=== PATIENT | female | born 1940 | race Caucasian/White ===

== ENCOUNTER 2019-09-11 13:52 | Inpatient (IN) | payer MEDICARE ==
[2019-09-11] MEDS ORDERED: IPRATROPIUM/ALBUTEROL 0.5-2.5 MG/3 ML AMPUL NEB ONE (14:06)
[2019-09-11] MEDS ORDERED: METHYLPREDNISOLONE INJ 125 MG/2 ML SDV IV ONE (14:06)
--- NOTE | 2019-09-11 14:08 | ER Document Report ---
ED Medical Screen (RME) - General Chief Complaint: Breathing Difficulty Stated Complaint: BREATHING PROBLEMS Time Seen by Provider: 09/11/19 14:02 Information source: Patient Notes: Patient presents complaining of cough for the past 5 days. Patient went to an urgent care 2 days ago and was given a shot of steroid medication and an inhaler. Patient reports mild fever at home. No chest discomfort or vomiting. Patient does have a history of COPD. Patient states she quit smoking yesterday and had been smoking less than a pack a day up until that point. I have greeted and performed a rapid initial assessment of this patient. A comprehensive ED assessment and evaluation of the patient, analysis of test results and completion of the medical decision making process will be conducted by additional ED providers. - Related Data Allergies/Adverse Reactions: No Known Allergies Allergy (Verified 09/11/19 13:57) Physical Exam - Vital signs Vitals: Temp Pulse Resp BP Pulse Ox 98.1 F 108 H 28 H 157/88 H 91 L 09/11/19 13:56 09/11/19 13:56 09/11/19 13:56 09/11/19 13:56 09/11/19 13:56 - Respiratory Respiratory status: Labored, Pursed lip breathing, Tachypnea Breath sounds: Productive cough, Rhonchi, Wheezing Course - Vital Signs Vital signs: Temp Pulse Resp BP Pulse Ox 98.1 F 108 H 28 H 157/88 H 91 L 09/11/19 13:56 09/11/19 13:56 09/11/19 13:56 09/11/19 13:56 09/11/19 13:56
[2019-09-11] MEDS: ALBUTEROL SULFATE 0.083% NEB 2.5 MG/3 ML AMPUL NEB SCH ×2 (14:35→14:57)
[2019-09-11 15:12] LABS: HEMATOCRIT 42.3 % (36.0-47.0); HEMOGLOBIN 14.7 g/dL (12.0-15.5); MEAN CORPUSCULAR HEMOGLOBIN 32.1 pg (27.0-33.4); MEAN CORPUSCULAR HGB CONC 34.6 g/dL (32.0-36.0); MEAN CORPUSCULAR VOLUME 93 fl (80-97); PLATELET COUNT 364 10^3/uL (150-450); RED BLOOD COUNT 4.57 10^6/uL (3.72-5.28); RED CELL DISTRIBUTION WIDTH 14.8 % (11.5-14.0); WHITE BLOOD COUNT 18.4 10^3/uL (4.0-10.5)
[2019-09-11] MEDS ORDERED: ALBUTEROL SULFATE 0.083% NEB 2.5 MG/3 ML AMPUL NEB ONE ×2 (15:30→16:35)
[2019-09-11 15:37] LABS: ABSOLUTE LYMPHOCYTES# (MANUAL) 1.7 10^3/uL (0.5-4.7); ABSOLUTE MONOCYTES # (MANUAL) 1.3 10^3/uL (0.1-1.4); BASOPHILS % (MANUAL) 1 % (0-2); EOSINOPHILS % (MANUAL) 0 % (0-6); LYMPHOCYTES % (MANUAL) 9 % (13-45); MONOCYTES % (MANUAL) 7 % (3-13); SEGMENTED NEUTROPHILS % (MAN) 83 % (42-78); TOTAL CELLS COUNTED 100
[2019-09-11 15:39] LABS: ANISOCYTOSIS SLIGHT; PLATELET COMMENT ADEQUATE; TOXIC VACUOLATION PRESENT
--- NOTE | 2019-09-11 15:46 | ER Document Report ---
Entered by DEBORAH BROWNING SCRIBE 09/11/19 1525 Acting as scribe for:DAQUAN POSADA MD ED General - General Chief Complaint: Breathing Difficulty Stated Complaint: BREATHING PROBLEMS Time Seen by Provider: 09/11/19 14:02 Primary Care Provider: USHA SULLIVAN MD [Primary Care Provider] - Follow up as needed Mode of Arrival: Ambulatory Information source: Patient Notes: This 79 year old female patient presents to the ED today with complaints of shortness of breath and an associated productive cough for the past x2 days. Patient states that she brings up green-colored sputum when she coughs. Patient notes that she was seen at an urgent care x2 days ago and was administered a steroid shot and an inhaler. Patient received a DuoNeb treatment prior to exam, but states that it provided no relief. Patient states that she did not receive a flu shot this year. Patient was 91% on room air initially despite her tachypnea. - Related Data Allergies/Adverse Reactions: No Known Allergies Allergy (Verified 09/11/19 13:57) Past Medical History - General Information source: Patient - Social History Smoking Status: Smoker,Current Status Unk Cigarette use (# per day): No Chew tobacco use (# tins/day): No Smoking Education Provided: No Family History: Reviewed & Not Pertinent Patient has suicidal ideation: No Patient has homicidal ideation: No Pulmonary Medical History: Reports: Hx COPD Review of Systems - Review of Systems Constitutional: No symptoms reported EENT: No symptoms reported Cardiovascular: No symptoms reported Respiratory: See HPI, Cough, Short of breath, Sputum Gastrointestinal: No symptoms reported Genitourinary: No symptoms reported Female Genitourinary: No symptoms reported Musculoskeletal: No symptoms reported Skin: No symptoms reported Hematologic/Lymphatic: No symptoms reported Neurological/Psychological: No symptoms reported -: Yes All other systems reviewed and negative Physical Exam - Vital signs Vitals: Temp Pulse Resp BP Pulse Ox 98.1 F 108 H 28 H 157/88 H 91 L 09/11/19 13:56 09/11/19 13:56 09/11/19 13:56 09/11/19 13:56 09/11/19 13:56 Interpretation: Tachycardic, Tachypneic - General General appearance: Alert - HEENT Head: Normocephalic, Atraumatic Eyes: Normal Pupils: PERRL - Respiratory Respiratory status: Pursed lip breathing, Retractions, Tachypnea Chest status: Nontender Breath sounds: Rhonchi - Worse on left side, Wheezing - Worse on left side, Other - Congestion Chest palpation: Normal - Cardiovascular Rhythm: Tachycardia Heart sounds: Normal auscultation Murmur: No - Abdominal Inspection: Normal Distension: No distension Bowel sounds: Normal Tenderness: Nontender Organomegaly: No organomegaly - Back Back: Other - Right side of back bulges compared to left side - Extremities General upper extremity: Normal inspection General lower extremity: Normal inspection - Neurological Neuro grossly intact: Yes - Psychological Associated symptoms: Normal affect, Normal mood - Skin Skin Temperature: Warm Skin Moisture: Dry Skin Color: Normal Course - Re-evaluation Re-evalutation: 09/11/19 17:43 The patient is much less tachypneic now. She states her breathing does feel much better. There is no retractions seen. She still has diffuse wheezes and rhonchi, especially if I have her take a deep breath and cough. Pulse ox is 90% on 2 L nasal cannula. Patient does look fatigued and is sitting on the edge of the bed hunched over. - Vital Signs Vital signs: Temp Pulse Resp BP Pulse Ox 98.1 F 108 H 24 H 124/69 93 09/11/19 13:56 09/11/19 13:56 09/11/19 17:01 09/11/19 17:01 09/11/19 17:01 - Laboratory Result Diagrams: 09/11/19 14:48 09/11/19 15:30 Laboratory results interpreted by me: 09/11/19 09/11/19 14:48 15:30 WBC 18.4 H RDW 14.8 H Seg Neuts % (Manual) 83 H Lymphocytes % (Manual) 9 L Abs Neuts (Manual) 15.3 H Glucose 132 H Alkaline Phosphatase 164 H - Diagnostic Test Radiology reviewed: Image reviewed, Reports reviewed - Chest x-ray shows emphysema with no acute changes. - EKG Interpretation by Me EKG shows normal: Sinus rhythm, Mclean, Intervals, QRS Complexes, ST-T Waves Rate: Normal - 87 Rhythm: NSR, PVC's When compared to previous EKG there are: Previous EKG unavailable - Consults Dr. Chandler Time consulted: 17:45 Consulted provider: will come to ER Critical Care Note - Critical Care Note Total time excluding time spent on procedures (mins): 35 Discharge - Discharge Clinical Impression: Acute exacerbation of chronic obstructive pulmonary disease (COPD), Hypoxemia Leukocytosis Qualifiers: Leukocytosis type: unspecified Qualified Code(s): D72.829 - Elevated white blood cell count, unspecified Condition: Fair Disposition: ADMITTED INPATIENT Admitting Provider: Ramesh (Hospitalist) Unit Admitted: IMCU Referrals: USHA SULLIVAN MD [Primary Care Provider] - Follow up as needed Scribe Attestation: 09/11/19 15:46 I personally performed the services described in the documentation, reviewed and edited the documentation which was dictated to the scribe in my presence, and it accurately records my words and actions. I personally performed the services described in the documentation, reviewed and edited the documentation which was dictated to the scribe in my presence, and it accurately records my words and actions.
[2019-09-11 16:04] LABS: ALKALINE PHOSPHATASE 164 U/L (38-126); ANION GAP 11 (5-19); ASPARTATE AMINO TRANSFERASE 25 U/L (14-36); BILIRUBIN,DIRECT 0.4 mg/dL (0.0-0.4); BILIRUBIN,TOTAL 0.5 mg/dL (0.2-1.3); BLOOD UREA NITROGEN 16 mg/dL (7-20); CALCIUM 9.7 mg/dL (8.4-10.2); CARBON DIOXIDE 27 mmol/L (22-30); CHLORIDE 100 mmol/L (98-107); GLUCOSE 132 mg/dL (75-110); POTASSIUM 3.9 mmol/L (3.6-5.0); TOTAL PROTEIN 7.1 g/dL (6.3-8.2)
--- NOTE | 2019-09-11 16:04 | RADIOLOGY REPORT (SQ) ---
EXAM DESCRIPTION: CHEST SINGLE VIEW COMPLETED DATE/TIME: 09/11/2019 3:44 pm REASON FOR STUDY: COPD exacerbation COMPARISON: None. EXAM PARAMETERS: NUMBER OF VIEWS: One view. TECHNIQUE: Single frontal radiographic view of the chest acquired. RADIATION DOSE: NA LIMITATIONS: None. FINDINGS: LUNGS AND PLEURA: No consolidation, pneumothorax or pleural effusion. Hyperlucent lungs a re suggestive of emphysema. MEDIASTINUM AND HILAR STRUCTURES: No masses. Contour normal. HEART AND VASCULAR STRUCTURES: Heart normal in size. No overt vascular congestion. BONES: No acute findings. HARDWARE: None in the chest. IMPRESSION: Emphysema. Otherwise, no acute radiographic finding in the chest. TECHNICAL DOCUMENTATION: JOB ID: [id number] [employer]- All Rights Reserved Reading location - IP/workstation name: [email or web address]
[2019-09-11 17:16] LABS: A TYPE INFLUENZA AG NEGATIVE (NEGATIVE); B INFLUENZA AG NEGATIVE (NEGATIVE)
[2019-09-11] MEDS ORDERED: ACETAMINOPHEN 325 MG TABLET PO PRN (18:07)
[2019-09-11] MEDS ORDERED: ONDANSETRON HCL INJ/PF 4 MG/2 ML SDV IV PRN (18:07)
[2019-09-11] MEDS ORDERED: NORMAL SALINE 1000 ML 1,000 ML IV PRN (18:07)
--- NOTE | 2019-09-11 18:22 | PDOC H&P ---
History of Present Illness Admission Date/PCP: USHA SULLIVAN MD Patient complains of: Shortness of breath for the last 5 to 6 days. History of Present Illness: MORGAN HINKLE is a 79 year old female history of COPD, chronic smoker smokes half pack per day, hypertension came to the emergency room with complaints of shortness of breath for the last 5 to 6 days associated with wheezing and coughing yellowish-green sputum. She went to urgent care center on Thursday she was given Mucinex, steroids and albuterol inhaler. Symptoms are not improving she decided to come to the ER for further evaluation. At the time of presentation in the ER patient is tachycardic tachypneic and pulse ox is around 88 to 90%. Patient received nebulizer treatments and IV Solu-Medrol pulse oxes are improved tachycardia tachypnea improving. Medical consult was called for admission. Patient wants to be a full code. Past Medical History Cardiac Medical History: Reports: Hypertension Pulmonary Medical History: Reports: Chronic Obstructive Pulmonary Disease (COPD) Malignancy Medical History: Reports: None GI Medical History: Reports: None Musculoskeltal Medical History: Reports: None Skin Medical History: Reports: None Psychiatric Medical History: Reports: None Traumatic Medical History: Reports: None Hematology: Reports: None Past Surgical History Past Surgical History: Reports: Adenoidectomy, Tonsillectomy, Tubal Ligation, Other - Partial hysterectomy Social History Information Source: Patient Lives with: Alone Smoking Status: Current Every Day Smoker Electronic Cigarette use?: No Frequency of Alcohol Use: Social Hx Recreational Drug Use: No Drugs: None - Advance Directive Resuscitation Status: Full Code Family History Family History: Reviewed & Not Pertinent Parental Family History Reviewed: No - Family history of hypertension Children Family History Reviewed: No Sibling(s) Family History Reviewed.: No Medication/Allergy Allergies/Adverse Reactions: No Known Allergies Allergy (Verified 09/11/19 13:57) Review of Systems Constitutional: ABSENT: chills, fatigue, fever(s), headache(s), night sweats, weakness Eyes: ABSENT: visual disturbances Ears: ABSENT: hearing changes Nose, Mouth, and Throat: ABSENT: mouth pain, sore throat Cardiovascular: ABSENT: dyspnea on exertion, orthropnea, palpitations Respiratory: PRESENT: cough, dyspnea, sputum Gastrointestinal: ABSENT: diarrhea, dysphagia, heartburn, hematemesis, melena, nausea, vomiting Genitourinary: ABSENT: difficulty urinating, dysuria, hematuria Musculoskeletal: ABSENT: back pain, joint swelling Integumentary: ABSENT: lesions, pruritus Neurological: ABSENT: confusion, dizziness, focal weakness, syncope Psychiatric: ABSENT: anxiety, depression Endocrine: ABSENT: cold intolerance Hematologic/Lymphatic: ABSENT: easy bleeding, easy bruising Physical Exam Vital Signs: Temp Pulse Resp BP Pulse Ox 98.1 F 108 H 24 H 124/69 93 09/11/19 13:56 09/11/19 13:56 09/11/19 17:01 09/11/19 17:01 09/11/19 17:01 Intake & Output 09/10/19 09/11/19 09/12/19 06:59 06:59 06:59 Weight 58.4 kg General appearance: PRESENT: no acute distress, thin Head exam: PRESENT: atraumatic Eye exam: PRESENT: PERRLA Mouth exam: PRESENT: dry mucosa, neck supple Teeth exam: PRESENT: poor dentation Neck exam: ABSENT: carotid bruit, JVD, lymphadenopathy, thyromegaly Respiratory exam: PRESENT: decreased breath sounds, wheezes Cardiovascular exam: PRESENT: tachycardia GI/Abdominal exam: PRESENT: normal bowel sounds, soft. ABSENT: distended, guarding, mass, organolmegaly, rebound, tenderness Rectal exam: PRESENT: deferred Extremities exam: PRESENT: full ROM. ABSENT: calf tenderness, clubbing, pedal e noé Neurological exam: PRESENT: alert, awake, oriented to person, oriented to place, oriented to time, oriented to situation, CN II-XII grossly intact. ABSENT: motor sensory deficit Psychiatric exam: PRESENT: appropriate affect, normal mood. ABSENT: homicidal ideation, suicidal ideation Results Laboratory Results: 09/11/19 14:48 09/11/19 15:30 09/11/19 09/11/19 09/11/19 14:48 14:48 15:30 WBC 18.4 H RBC 4.57 Hgb 14.7 Hct 42.3 MCV 93 MCH 32.1 MCHC 34.6 RDW 14.8 H Plt Count 364 Seg Neutrophils % Not Reportable Sodium Cancelled 138.3 Potassium Cancelled 3.9 Chloride Cancelled 100 Carbon Dioxide Cancelled 27 Anion Gap Cancelled 11 BUN Cancelled 16 Creatinine Cancelled 0.68 Est GFR ( Amer) Cancelled > 60 Est GFR (Non-Af Amer) Cancelled Glucose Cancelled 132 H Calcium Cancelled 9.7 Total Bilirubin Cancelled 0.5 AST Cancelled 25 Alkaline Phosphatase Cancelled 164 H Total Protein Cancelled 7.1 Albumin Cancelled 4.0 09/11/19 09/11/19 14:48 15:30 Troponin I Cancelled < 0.012 Impressions: Chest X-Ray 09/11/19 15:30 IMPRESSION: Emphysema. Otherwise, no acute radiographic finding in the chest. Assessment and Plan - Diagnosis (1) Acute exacerbation of chronic obstructive pulmonary disease (COPD) Is this a current diagnosis for this admission?: Yes Plan: 09/11/2019 patient is going to be admitted to [facility] patient is a full code. Admitting diagnosis acute on chronic exacerbation of COPD. Plan to start her on IV Solu-Medrol 40 mg every 12 hours, Xopenex nebulizations every 6 hours as needed, flutter valve therapy, oxygen 2 L via nasal cannula, IV Rocephin 2 g daily. sputum cultures blood cultures are pending. We are going to check for home oxygen requirements at the time of discharge. Chest x-ray suggestive of emphysema. dVT prophylaxis GI prophylaxis initiated. (2) Hypoxemia Is this a current diagnosis for this admission?: Yes Plan: 09/11/2019-patient came in with acute on chronic respiratory failure with hypoxia pulse ox in the 80s on initial presentation with nebulizer treatments and IV S cathy-Medrol pulse ox improved to 93% on 2 L at the time of my examination. Acute on chronic respiratory failure with hypoxia most likely secondary to COPD exacerbation. (3) Leukocytosis Qualifiers: Leukocytosis type: unspecified Qualified Code(s): D72.829 - Elevated white blood cell count, unspecified Is this a current diagnosis for this admission?: Yes Plan: 09/11/2019 admission WBC count is 18,600 patient was started on steroids at the urgent care 2 days ago. Elevated WBC can be reactive leukocytosis. (4) HTN (hypertension) Is this a current diagnosis for this admission?: No Plan: 09/11/2019 patient is given the history of hypertension associated with lower leg swelling she is taking furosemide at home. Plan is to resume furosemide during this hospital stay. (5) Tachycardia Is this a current diagnosis for this admission?: Yes Plan: 09/11/2019 at the time of examination patient in a sinus tachycardia with heart rate around 120. Sinus tachycardia most likely secondary to COPD exacerbation.
--- NOTE | 2019-09-11 18:30 | EKG REPORT ---
SEVERITY:- OTHERWISE NORMAL ECG - SINUS RHYTHM VENTRICULAR PREMATURE COMPLEX : Confirmed by: Princess Edwards MD 11-Sep-2019 18:29:40
[2019-09-11] MEDS ORDERED: CEFTRIAXONE 2 GM/D5W RTU 2 GM/50 ML RTUPB IV ONE (20:00)
[2019-09-11] MEDS: FAMOTIDINE 20 MG TABLET PO SCH (22:12)
[2019-09-11] MEDS: TEMAZEPAM 15 MG CAPSULE PO SCH (22:12)
[2019-09-11] MEDS: METHYLPREDNISOLONE INJ 40 MG/1 ML SDV IV SCH (22:13)
[2019-09-11] MEDS: HEPARIN SOD (PORCINE) 5,000 UNIT/ML 1 ML VIAL SUBCUT SCH (22:13)
[2019-09-12] MEDS ORDERED: INFLUENZA QUAD (6MOS+) 2019-20 VAC 0.5 ML SYR IM ONE (00:52)
[2019-09-12] MEDS: HEPARIN SOD (PORCINE) 5,000 UNIT/ML 1 ML VIAL SUBCUT SCH ×3 (05:30→21:35)
[2019-09-12 05:43] LABS: HEMATOCRIT 40.3 % (36.0-47.0); HEMOGLOBIN 13.5 g/dL (12.0-15.5); MEAN CORPUSCULAR HEMOGLOBIN 31.2 pg (27.0-33.4); MEAN CORPUSCULAR HGB CONC 33.5 g/dL (32.0-36.0); MEAN CORPUSCULAR VOLUME 93 fl (80-97); PLATELET COUNT 350 10^3/uL (150-450); RED BLOOD COUNT 4.33 10^6/uL (3.72-5.28); RED CELL DISTRIBUTION WIDTH 13.8 % (11.5-14.0); WHITE BLOOD COUNT 11.1 10^3/uL (4.0-10.5)
[2019-09-12 06:08] LABS: BLOOD UREA NITROGEN 16 mg/dL (7-20); CALCIUM 9.6 mg/dL (8.4-10.2); CARBON DIOXIDE 31 mmol/L (22-30); CHLORIDE 101 mmol/L (98-107); GLUCOSE 139 mg/dL (75-110); POTASSIUM 4.8 mmol/L (3.6-5.0)
[2019-09-12 06:09] LABS: ALBUMIN 3.6 g/dL (3.5-5.0); ALKALINE PHOSPHATASE 132 U/L (38-126); ANION GAP 8 (5-19); ASPARTATE AMINO TRANSFERASE 19 U/L (14-36); BILIRUBIN,DIRECT 0.3 mg/dL (0.0-0.4); BILIRUBIN,TOTAL 0.3 mg/dL (0.2-1.3); CHOLESTEROL 161.39 mg/dL (0-200); TOTAL PROTEIN 6.5 g/dL (6.3-8.2); TRIGLYCERIDES 84 mg/dL (<150)
[2019-09-12 06:19] LABS: DIRECT LDL 87 mg/dL (<100)
[2019-09-12] MEDS ORDERED: GUAIFENESIN/D-METHORPHAN (200-20 MG) SYRUP 10 ML PO PRN (09:25)
--- NOTE | 2019-09-12 09:25 | PDOC PROGRESS REPORT ---
Subjective Progress Note for:: 09/12/19 Subjective:: 79 year old female history of COPD, chronic smoker smokes half pack per day, hypertension came to the emergency room with complaints of shortness of breath for the last 5 to 6 days associated with wheezing and coughing yellowish-green sputum. She went to urgent care center on Thursday she was given Mucinex, steroids and albuterol inhaler. Symptoms are not improving she decided to come to the ER for further evaluation. At the time of presentation in the ER patient is tachycardic tachypneic and pulse ox is around 88 to 90%. Patient received nebulizer treatments and IV Solu-Medrol pulse oxes are improved tachycardia tachypnea improving. Medical consult was called for admission. Patient wants to be a full code. [id number]-old female with history of COPD admitted with COPD exacerbation. No acute events in the last 24 hours. Afebrile. Pulse ox is 96% on 2 L. Reason For Visit: COPD EXACERBATION Physical Exam Vital Signs: Temp Pulse Resp BP Pulse Ox 97.6 F 85 16 176/77 H 96 09/12/19 07:52 09/12/19 07:52 09/12/19 07:52 09/12/19 07:52 09/12/19 07:52 Intake & Output 09/11/19 09/12/19 09/13/19 06:59 06:59 06:59 Intake Total 310 Balance 310 Weight 58.8 kg General appearance: PRESENT: no acute distress, thin Head exam: PRESENT: atraumatic Eye exam: PRESENT: PERRLA Mouth exam: PRESENT: moist, tongue midline Teeth exam: PRESENT: poor dentation Neck exam: ABSENT: carotid bruit, JVD, lymphadenopathy, thyromegaly Respiratory exam: PRESENT: decreased breath sounds Cardiovascular exam: PRESENT: RRR, tachycardia. ABSENT: diastolic murmur, rubs, systolic murmur GI/Abdominal exam: PRESENT: normal bowel sounds, soft. ABSENT: distended, guarding, mass, organolmegaly, rebound, tenderness Rectal exam: PRESENT: deferred Extremities exam: PRESENT: full ROM. ABSENT: calf tenderness, clubbing, pedal edema Neurological exam: PRESENT: alert, awake, oriented to person, oriented to place, oriented to time, oriented to situation, CN II-XII grossly intact. ABSENT: motor sensory deficit Psychiatric exam: PRESENT: appropriate affect, normal mood. ABSENT: homicidal ideation, suicidal ideation Results Laboratory Results: 09/12/19 04:47 09/12/19 04:47 09/11/19 09/11/19 09/11/19 14:48 14:48 15:30 WBC 18.4 H RBC 4.57 Hgb 14.7 Hct 42.3 MCV 93 MCH 32.1 MCHC 34.6 RDW 14.8 H Plt Count 364 Seg Neutrophils % Not Reportable Sodium Cancelled 138.3 Potassium Cancelled 3.9 Chloride Cancelled 100 Carbon Dioxide Cancelled 27 Anion Gap Cancelled 11 BUN Cancelled 16 Creatinine Cancelled 0.68 Est GFR ( Amer) Cancelled > 60 Est GFR (Non-Af Amer) Cancelled Glucose Cancelled 132 H Calcium Cancelled 9.7 Magnesium Total Bilirubin Cancelled 0.5 AST Cancelled 25 Alkaline Phosphatase Cancelled 164 H Total Protein Cancelled 7.1 Albumin Cancelled 4.0 Triglycerides Cholesterol LDL Cholesterol Direct VLDL Cholesterol HDL Cholesterol TSH 09/12/19 09/12/19 09/12/19 04:47 04:47 04:47 WBC 11.1 H RBC 4.33 Hgb 13.5 Hct 40.3 MCV 93 MCH 31.2 MCHC 33.5 RDW 13.8 Plt Count 350 Seg Neutrophils % Sodium 140.3 Potassium 4.8 Chloride 101 Carbon Dioxide 31 H Anion Gap 8 BUN 16 Creatinine 0.60 Est GFR ( Amer) > 60 Est GFR (Non-Af Amer) Glucose 139 H Calcium 9.6 Magnesium 2.5 H Total Bilirubin 0.3 AST 19 Alkaline Phosphatase 132 H Total Protein 6.5 Albumin 3.6 Triglycerides 84 Cholesterol 161.39 LDL Cholesterol Direct 87 VLDL Cholesterol 17.0 HDL Cholesterol 59 TSH 0.32 L 09/11/19 09/11/19 14:48 15:30 Troponin I Cancelled < 0.012 Impressions: Chest X-Ray 09/11/19 15:30 IMPRESSION: Emphysema. Otherwise, no acute radiographic finding in the chest. Assessment and Plan - Diagnosis (1) Acute exacerbation of chronic obstructive pulmonary disease (COPD) Is this a current diagnosis for this admission?: Yes Plan: 09/11/2019 patient is going to be admitted to [facility] patient is a full code. Admitting diagnosis acute on chronic exacerbation of COPD. Plan to start her on IV Solu-Medrol 40 mg every 12 hours, Xopenex nebulizations every 6 hours as needed, flutter valve therapy, oxygen 2 L via nasal cannula, IV Rocephin 2 g daily. sputum cultures blood cultures are pending. We are going to check for home oxygen requirements at the time of discharge. Chest x-ray suggestive of emphysema. dVT prophylaxis GI prophylaxis initiated. 09/[id number]-[id number]-old female with history of COPD, chronic smoker admitted with a COPD exacerbation. Patient is receiving Xopenex nebulizations, flutter valve therapy, IV Solu-Medrol 40 mg every 12 hours. Pulse ox is 96% on 2 L today on examination wheezing is much improved. Plan is to continue the present management at this time and she is receiving Rocephin 2 g IV daily. (2) Hypoxemia Is this a current diagnosis for this admission?: Yes Plan: 09/11/2019-patient came in with acute on chronic respiratory failure with hypoxia pulse ox in the 80s on initial presentation with nebulizer treatments and IV Solu-Medrol pulse ox improved to 93% on 2 L at the time of my examination. Acute on chronic respiratory failure with hypoxia most likely secondary to COPD exacerbation. 09/12/2019-patient admitted with hypoxia with a pulse ox of around 88% in the emergency room she was given nebulizer treatments and IV Solu-Medrol in the ER pulse oxes are improved. Hypoxia secondary to acute exacerbation of COPD resolving. (3) Leukocytosis Qualifiers: Leukocytosis type: unspecified Qualified Code(s): D72.829 - Elevated white blood cell count, unspecified Is this a current diagnosis for this admission?: Yes Plan: 09/11/2019 admission WBC count is 18,600 patient was started on steroids at the [facility] 2 days ago. Elevated WBC can be reactive leukocytosis. 09/12/2019 admission WBC count is 18,600 improved to 11,100 today. Leukocytosis may be secondary to COPD exacerbation. May be due to reactive leukocytosis. (4) HTN (hypertension) Is this a current diagnosis for this admission?: No Plan: 09/11/2019 patient is given the history of hypertension associated with lower leg swelling she is taking furosemide at home. Plan is to resume furosemide during this hospital stay. 09/12/2019-patient blood pressure today is 176/77. Presently on Lasix 20 mg daily. Plan is to discontinue IV fluids from today. (5) Tachycardia Is this a current diagnosis for this admission?: Yes Plan: 09/11/2019 at the time of examination patient in a sinus tachycardia with heart rate around 120. Sinus tachycardia most likely secondary to COPD exacerbation. 09/12/2019-patient came in with tachycardia heart rate between 120-to 130 today's heart rate is in the 80s. Tachycardia most likely secondary to COPD exacerbation resolving.
[2019-09-12] MEDS: LEVALBUTEROL HCL NEB 1.25 MG/3 ML AMPUL NEB PRN ×2 (09:56→14:00)
[2019-09-12] MEDS: FUROSEMIDE 20 MG TABLET PO SCH (10:01)
[2019-09-12] MEDS: DOCUSATE SODIUM 100 MG/10 ML UDC PO SCH ×2 (10:01→17:01)
[2019-09-12] MEDS: METHYLPREDNISOLONE INJ 40 MG/1 ML SDV IV SCH ×2 (10:02→21:35)
[2019-09-12] MEDS: FAMOTIDINE 20 MG TABLET PO SCH ×2 (10:02→21:35)
[2019-09-12] MEDS: TEMAZEPAM 15 MG CAPSULE PO SCH (21:35)
[2019-09-13] MEDS: HEPARIN SOD (PORCINE) 5,000 UNIT/ML 1 ML VIAL SUBCUT SCH ×3 (05:05→21:26)
[2019-09-13 05:17] LABS: HEMATOCRIT 43.2 % (36.0-47.0); HEMOGLOBIN 14.7 g/dL (12.0-15.5); MEAN CORPUSCULAR HEMOGLOBIN 31.3 pg (27.0-33.4); MEAN CORPUSCULAR VOLUME 92 fl (80-97); PLATELET COUNT 359 10^3/uL (150-450); RED BLOOD COUNT 4.69 10^6/uL (3.72-5.28); RED CELL DISTRIBUTION WIDTH 14.1 % (11.5-14.0); WHITE BLOOD COUNT 14.1 10^3/uL (4.0-10.5)
[2019-09-13 05:28] LABS: ALKALINE PHOSPHATASE 131 U/L (38-126); ANION GAP 6 (5-19); ASPARTATE AMINO TRANSFERASE 24 U/L (14-36); BILIRUBIN,DIRECT 0.4 mg/dL (0.0-0.4); BILIRUBIN,TOTAL 0.4 mg/dL (0.2-1.3); BLOOD UREA NITROGEN 23 mg/dL (7-20); CALCIUM 9.6 mg/dL (8.4-10.2); CARBON DIOXIDE 34 mmol/L (22-30); CHLORIDE 100 mmol/L (98-107); GLUCOSE 122 mg/dL (75-110); POTASSIUM 4.7 mmol/L (3.6-5.0); TOTAL PROTEIN 7.3 g/dL (6.3-8.2)
[2019-09-13 05:37] LABS: ABSOLUTE LYMPHOCYTES# (MANUAL) 1.4 10^3/uL (0.5-4.7); ABSOLUTE MONOCYTES # (MANUAL) 0.1 10^3/uL (0.1-1.4); BASOPHILS % (MANUAL) 0 % (0-2); EOSINOPHILS % (MANUAL) 0 % (0-6); LYMPHOCYTES % (MANUAL) 8 % (13-45); MONOCYTES % (MANUAL) 1 % (3-13); SEGMENTED NEUTROPHILS % (MAN) 89 % (42-78); TOTAL CELLS COUNTED 100
[2019-09-13 05:40] LABS: ANISOCYTOSIS SLIGHT; OVALOCYTES SLIGHT; PLATELET COMMENT ADEQUATE; POIKILOCYTOSIS SLIGHT; TOXIC GRANULATION 1+; TOXIC VACUOLATION PRESENT
[2019-09-13] MEDS ORDERED: HYDRALAZINE HCL INJ/PF 20 MG/1 ML SDV IV PRN (07:48)
[2019-09-13] MEDS ORDERED: HYDRALAZINE HCL INJ/PF 20 MG/1 ML SDV IV ONE (09:00)
[2019-09-13] MEDS: FUROSEMIDE 20 MG TABLET PO SCH (09:04)
[2019-09-13] MEDS: DOCUSATE SODIUM 100 MG/10 ML UDC PO SCH ×2 (09:04→17:01)
[2019-09-13] MEDS: FAMOTIDINE 20 MG TABLET PO SCH ×2 (09:04→21:26)
[2019-09-13] MEDS: METHYLPREDNISOLONE INJ 40 MG/1 ML SDV IV SCH ×2 (09:04→21:26)
[2019-09-13] MEDS: LEVALBUTEROL HCL NEB 1.25 MG/3 ML AMPUL NEB PRN (09:57)
[2019-09-13] MEDS: AZITHROMYCIN 250 MG TABLET PO SCH (13:07)
--- NOTE | 2019-09-13 14:38 | PDOC PROGRESS REPORT ---
Subjective Progress Note for:: 09/13/19 Reason For Visit: COPD EXACERBATION 09/13/2019 Patient was admitted for 5-day history of cough, increased shortness of breath, COPD exacerbation. patient denies using oxygen at home Physical Exam Vital Signs: Temp Pulse Resp BP Pulse Ox 97.6 F 105 H 17 131/67 H 93 09/13/19 11:43 09/13/19 14:00 09/13/19 11:43 09/13/19 11:43 09/13/19 11:43 Intake & Output 09/12/19 09/13/19 09/14/19 06:59 06:59 06:59 Intake Total 310 1355 640 Output Total 200 Balance 310 1155 640 Weight 58.8 kg 60.2 kg General appearance: PRESENT: mild distress Respiratory exam: PRESENT: tachypnea, wheezes, other - Patient is speaking in short sentences with pursed lips Cardiovascular exam: PRESENT: RRR. ABSENT: diastolic murmur, rubs, systolic murmur Neurological exam: PRESENT: alert, awake, oriented to person, oriented to place, oriented to time, oriented to situation, CN II-XII grossly intact. ABSENT: motor sensory deficit Psychiatric exam: PRESENT: appropriate affect, normal mood, other - Patient denies being anxious. ABSENT: homicidal ideation, suicidal ideation Results Laboratory Results: 09/13/19 04:41 09/13/19 04:41 09/13/19 09/13/19 04:41 04:41 WBC 14.1 H RBC 4.69 Hgb 14.7 Hct 43.2 MCV 92 MCH 31.3 MCHC 34.0 RDW 14.1 H Plt Count 359 Seg Neutrophils % Not Reportable Sodium 139.9 Potassium 4.7 Chloride 100 Carbon Dioxide 34 H Anion Gap 6 BUN 23 H Creatinine 0.83 Est GFR ( Amer) > 60 Glucose 122 H Calcium 9.6 Magnesium 2.7 H Total Bilirubin 0.4 AST 24 Alkaline Phosphatase 131 H Total Protein 7.3 Albumin 4.0 09/11/19 16:11 Sputum Gram Stain - Final 09/11/19 16:11 Sputum Sputum Culture - Final Haemophilus Influenzae Reduced Normal Rae 09/11/19 09/11/19 14:48 15:30 Troponin I Cancelled < 0.012 Impressions: Chest X-Ray 09/11/19 15:30 IMPRESSION: Emphysema. Otherwise, no acute radiographic finding in the chest. Assessment and Plan - Diagnosis (1) Emphysema of lung Is this a current diagnosis for this admission?: Yes (2) End stage COPD Is this a current diagnosis for this admission?: Yes (3) Acute exacerbation of chronic obstructive pulmonary disease (COPD) Is this a current diagnosis for this admission?: Yes (4) HTN (hypertension) Is this a current diagnosis for this admission?: Yes (5) Hypoxemia Is this a current diagnosis for this admission?: Yes (6) Leukocytosis Qualifiers: Leukocytosis type: unspecified Qualified Code(s): D72.829 - Elevated white blood cell count, unspecified Is this a current diagnosis for this admission?: Yes (7) Tachycardia Is this a current diagnosis for this admission?: Yes - Plan Summary Summary: 09/13/2019 Patient denies using oxygen at home. Does not have a nebulizer machine at home although she will need one at the time of discharge Patient states she was living independently but is going to live with her son at the time of discharge. Patient states that prior to being admitted she had 5 days of worsening shortness of breath Temperature 97.6 pulse 66 blood pressure was elevated at 182/91 O2 sat was between 92 and 98% on 1 to 3 L of nasal cannula Blood pressures come down to 131/67 with 20 of Apresoline IV. Patient was on no antihypertensive other than Lasix prior to admission. States she was put on this medicine many years ago for peripheral edema. Patient denies ever being told she was hypertensive Admission white count was 18,400 today it is 14.1 Chemistry panel is grossly normal A1c is 5.7. TSH was low at 0.32 Feed him is growing out H. influenzae. Swab in the emergency room was negative for flu a or flu B Patient currently using Solu-Medrol 40 mg IV every 12 hours. Lasix 20 mg p.o. daily Zithromax 500 mg po daily was added today Patient will probably need home oxygen and also a nebulizer machine at the time of discharge repeat chest x-ray 2 views in the morning - Time Time Spent with patient: 25-34 minutes
[2019-09-13] MEDS: TEMAZEPAM 15 MG CAPSULE PO SCH (21:26)
[2019-09-14] MEDS: HEPARIN SOD (PORCINE) 5,000 UNIT/ML 1 ML VIAL SUBCUT SCH ×3 (05:20→21:22)
[2019-09-14] MEDS: AZITHROMYCIN 250 MG TABLET PO SCH (09:05)
[2019-09-14] MEDS: FUROSEMIDE 20 MG TABLET PO SCH (09:05)
[2019-09-14] MEDS: FAMOTIDINE 20 MG TABLET PO SCH ×2 (09:05→21:22)
[2019-09-14] MEDS: DOCUSATE SODIUM 100 MG/10 ML UDC PO SCH ×2 (09:05→17:11)
[2019-09-14] MEDS: METHYLPREDNISOLONE INJ 40 MG/1 ML SDV IV SCH (09:05)
--- NOTE | 2019-09-14 10:07 | RADIOLOGY REPORT (SQ) ---
EXAM DESCRIPTION: CHEST 2 VIEWS COMPLETED DATE/TIME: 09/14/2019 9:43 am REASON FOR STUDY: copd vs pneumonia COMPARISON: 09/11/2019 EXAM PARAMETERS: NUMBER OF VIEWS: two views TECHNIQUE: Digital Frontal and Lateral radiographic views of the chest acquired. RADIATION DOSE: NA LIMITATIONS: none FINDINGS: LUNGS AND PLEURA: Lung talbot remain hyperexpanded. No failure or consolidation. No pleu ral effusions. Probable calcified granuloma in the right upper lobe medially. MEDIASTINUM AND HILAR STRUCTURES: No masses or contour abnormalities. HEART AND VASCULAR STRUCTURES: Heart normal size. No evidence for failure. BONES: No acute findings. HARDWARE: None in the chest. OTHER: No other significant finding. IMPRESSION: COPD. No failure or consolidation. TECHNICAL DOCUMENTATION: JOB ID: [id number] [email or web address] All Rights Reserved Reading location - IP/workstation name: [email or web address]
[2019-09-14] MEDS: LEVALBUTEROL HCL NEB 1.25 MG/3 ML AMPUL NEB PRN (13:37)
--- NOTE | 2019-09-14 14:13 | PDOC PROGRESS REPORT ---
Subjective Progress Note for:: 09/14/19 Reason For Visit: COPD EXACERBATION 09/13/2019 Patient admitted for COPD exacerbation, shortness of breath, cough. No home O2. No sign of pneumonia on chest x-ray Physical Exam Vital Signs: Temp Pulse Resp BP Pulse Ox 97.8 F 103 H 20 150/86 H 96 09/14/19 12:01 09/14/19 13:51 09/14/19 13:39 09/14/19 12:01 09/14/19 13:39 Intake & Output 09/13/19 09/14/19 09/15/19 06:59 06:59 06:59 Intake Total 1355 1060 240 Output Total 200 Balance 1155 1060 240 Weight 60.2 kg 60 kg General appearance: PRESENT: mild distress, other - Patient states she gets short of breath just eating a meal Respiratory exam: PRESENT: decreased breath sounds, rhonchi, wheezes Cardiovascular exam: PRESENT: RRR. ABSENT: diastolic murmur, rubs, systolic murmur Neurological exam: PRESENT: alert, awake, oriented to person, oriented to place, oriented to time, oriented to situation, CN II-XII grossly intact. ABSENT: motor sensory deficit Psychiatric exam: PRESENT: appropriate affect, normal mood. ABSENT: homicidal ideation, suicidal ideation Results Laboratory Results: 09/13/19 04:41 09/13/19 04:41 09/11/19 16:11 Sputum Gram Stain - Final 09/11/19 16:11 Sputum Sputum Culture - Final Haemophilus Influenzae Reduced Normal Rae 09/11/19 09/11/19 14:48 15:30 Troponin I Cancelled < 0.012 Impressions: Chest X-Ray 09/14/19 00:00 IMPRESSION: COPD. No failure or consolidation. Assessment and Plan - Diagnosis (1) Emphysema of lung Is this a current diagnosis for this admission?: Yes (2) End stage COPD Is this a current diagnosis for this admission?: Yes (3) Acute exacerbation of chronic obstructive pulmonary disease (COPD) Is this a current diagnosis for this admission?: Yes (4) HTN (hypertension) Is this a current diagnosis for this admission?: Yes (5) Hypoxemia Is this a current diagnosis for this admission?: Yes (6) Leukocytosis Qualifiers: Leukocytosis type: unspecified Qualified Code(s): D72.829 - Elevated white blood cell count, unspecified Is this a current diagnosis for this admission?: Yes (7) Tachycardia Is this a current diagnosis for this admission?: Yes - Plan Summary Summary: 09/13/2019 Patient denies using oxygen at home. Does not have a nebulizer machine at home although she will need one at the time of discharge Patient states she was living independently but is going to live with her son at the time of discharge. Patient states that prior to being admitted she had 5 days of worsening shortness of breath Temperature 97.6 pulse 66 blood pressure was elevated at 182/91 O2 sat was between 92 and 98% on 1 to 3 L of nasal cannula Blood pressures come down to 131/67 with 20 of Apresoline IV. Patient was on no antihypertensive other than Lasix prior to admission. States she was put on this medicine many years ago for peripheral edema. Patient denies ever being told she was hypertensive Admission white count was 18,400 today it is 14.1 Chemistry panel is grossly normal A1c is 5.7. TSH was low at 0.32 Feed him is growing out H. influenzae. Swab in the emergency room was negative for flu a or flu B Patient currently using Solu-Medrol 40 mg IV every 12 hours. Lasix 20 mg p.o. daily Zithromax 500 mg po daily was added today Patient will probably need home oxygen and also a nebulizer machine at the time of discharge repeat chest x-ray 2 views in the morning 09/14/2019 Two-view chest x-ray this morning shows lung talbot to be hyperexpanded but no failure or consolidation no pleural effusion Temperature 97.8 pulse is averaging about 80 with some fluctuations Pressure approximately 150/86 O2 sat 94 to 96% on 1 to 2 L nasal cannula White blood cell count 14,100 Did start the patient on IV Zithromax yesterday, continue the Solu-Medrol as well as Lasix Is very stable maintaining her oxygen saturations COPD exacerbation with bronchitis - Time Time Spent with patient: 25-34 minutes
[2019-09-14] MEDS ORDERED: DILTIAZEM HCL INJ 25 MG/5 ML VIAL ONE (17:44)
[2019-09-14] MEDS ORDERED: DILTIAZEM HCL INJ 25 MG/5 ML VIAL IV ONE (18:15)
[2019-09-14] MEDS: TEMAZEPAM 15 MG CAPSULE PO SCH (21:22)
[2019-09-15] MEDS: HEPARIN SOD (PORCINE) 5,000 UNIT/ML 1 ML VIAL SUBCUT SCH ×3 (05:21→21:48)
--- NOTE | 2019-09-15 07:44 | EKG REPORT ---
SEVERITY:- ABNORMAL ECG - ATRIAL FIBRILLATION WITH RAPID V-RATE CONSIDER LEFT VENTRICULAR HYPERTROPHY : Confirmed by: Juan Carlos Cm MD 15-Sep-2019 07:44:10
[2019-09-15] MEDS: DOCUSATE SODIUM 100 MG/10 ML UDC PO SCH ×2 (09:11→17:31)
[2019-09-15] MEDS: FAMOTIDINE 20 MG TABLET PO SCH ×2 (09:14→21:48)
[2019-09-15] MEDS: FUROSEMIDE 20 MG TABLET PO SCH (09:14)
[2019-09-15] MEDS: METHYLPREDNISOLONE INJ 40 MG/1 ML SDV IV SCH (09:14)
[2019-09-15] MEDS: AZITHROMYCIN 250 MG TABLET PO SCH (09:15)
--- NOTE | 2019-09-15 11:51 | PDOC PROGRESS REPORT ---
Subjective Progress Note for:: 09/15/19 Reason For Visit: COPD EXACERBATION 09/15/2019 COPD exacerbation, shortness of breath, cough,. Uses no home oxygen. Sign of pneumonia on chest x-ray. Paroxysmal atrial fib Physical Exam Vital Signs: Temp Pulse Resp BP Pulse Ox 97.6 F 72 16 150/83 H 96 09/15/19 07:48 09/15/19 07:48 09/15/19 07:48 09/15/19 07:48 09/15/19 09:27 Intake & Output 09/14/19 09/15/19 09/16/19 06:59 06:59 06:59 Intake Total 1060 610 200 Output Total 100 200 Balance 1060 510 0 Weight 60 kg 59.4 kg General appearance: PRESENT: no acute distress, other - Sitting up smiling talking almost in full sentences. Son is in the room. States she had a good night Respiratory exam: PRESENT: clear to auscultation damaris. ABSENT: rales, rhonchi, wheezes Cardiovascular exam: PRESENT: RRR. ABSENT: diastolic murmur, rubs, systolic murmur Neurological exam: PRESENT: alert, awake, oriented to person, oriented to place, oriented to time, oriented to situation, CN II-XII grossly intact. ABSENT: motor sensory deficit Psychiatric exam: PRESENT: appropriate affect, normal mood. ABSENT: homicidal ideation, suicidal ideation Results Laboratory Results: 09/13/19 04:41 09/13/19 04:41 09/11/19 09/11/19 14:48 15:30 Troponin I Cancelled < 0.012 Impressions: Chest X-Ray 09/14/19 00:00 IMPRESSION: COPD. No failure or consolidation. Assessment and Plan - Diagnosis (1) Emphysema of lung Is this a current diagnosis for this admission?: Yes (2) End stage COPD Is this a current diagnosis for this admission?: Yes (3) Acute exacerbation of chronic obstructive pulmonary disease (COPD) Is this a current diagnosis for this admission?: Yes (4) HTN (hypertension) Is this a current diagnosis for this admission?: Yes (5) Hypoxemia Is this a current diagnosis for this admission?: Yes (6) Leukocytosis Qualifiers: Leukocytosis type: unspecified Qualified Code(s): D72.829 - Elevated white blood cell count, unspecified Is this a current diagnosis for this admission?: Yes (7) Tachycardia Is this a current diagnosis for this admission?: Yes - Plan Summary Summary: 09/13/2019 Patient denies using oxygen at home. Does not have a nebulizer machine at home although she will need one at the time of discharge Patient states she was living independently but is going to live with her son at the time of discharge. Patient states that prior to being admitted she had 5 days of worsening shortness of breath Temperature 97.6 pulse 66 blood pressure was elevated at 182/91 O2 sat was between 92 and 98% on 1 to 3 L of nasal cannula Blood pressures come down to 131/67 with 20 of Apresoline IV. Patient was on no antihypertensive other than Lasix prior to admission. States she was put on this medicine many years ago for peripheral edema. Patient denies ever being told she was hypertensive Admission white count was 18,400 today it is 14.1 Chemistry panel is grossly normal A1c is 5.7. TSH was low at 0.32 Feed him is growing out H. influenzae. Swab in the emergency room was negative for flu a or flu B Patient currently using Solu-Medrol 40 mg IV every 12 hours. Lasix 20 mg p.o. daily Zithromax 500 mg po daily was added today Patient will probably need home oxygen and also a nebulizer machine at the time of discharge repeat chest x-ray 2 views in the morning 09/14/2019 Two-view chest x-ray this morning shows lung talbot to be hyperexpanded but no failure or consolidation no pleural effusion Temperature 97.8 pulse is averaging about 80 with some fluctuations Pressure approximately 150/86 O2 sat 94 to 96% on 1 to 2 L nasal cannula White blood cell count 14,100 Did start the patient on IV Zithromax yesterday, continue the Solu-Medrol as well as Lasix Is very stable maintaining her oxygen saturations COPD exacerbation with bronchitis 09/15/2019 She had a short run of atrial fib yesterday afternoon. New onset. Possibly precipitated by her Solu-Medrol and or her COPD. Dose of 10 mg IV Cardizem resolve the issue. Through the night patient has maintained a heart rate from 58-87, with a blood pressure 146/71 and O2 sat between 94 and 100% on 2 L Patient has no p.o. beta-selina ordered at this time Anticipate discharge home on either Thursday or Thursday. Have decreased her Solu-Medrol to just once a day dosing. I have changed her nebulizers from albuterol to Xopenex Patient seems to have made good progress in the last 24 hours - Time Time Spent with patient: 25-34 minutes
--- NOTE | 2019-09-15 12:42 | EKG REPORT ---
SEVERITY:- ABNORMAL ECG - SINUS RHYTHM MULTIPLE ATRIAL PREMATURE COMPLEXES POOR PRECORDIAL LEAD PLACEMENT OR OLD ANTERIOR [place] : Confirmed by: Juan Carlos Cm MD 15-Sep-2019 12:41:35
[2019-09-15] MEDS: TEMAZEPAM 15 MG CAPSULE PO SCH (21:48)
[2019-09-16] MEDS: HEPARIN SOD (PORCINE) 5,000 UNIT/ML 1 ML VIAL SUBCUT SCH ×3 (05:04→22:36)
[2019-09-16] MEDS: DOCUSATE SODIUM 100 MG/10 ML UDC PO SCH ×2 (09:34→17:32)
[2019-09-16] MEDS: FUROSEMIDE 20 MG TABLET PO SCH (09:43)
[2019-09-16] MEDS: FAMOTIDINE 20 MG TABLET PO SCH ×2 (09:43→22:35)
[2019-09-16] MEDS: AZITHROMYCIN 250 MG TABLET PO SCH (09:43)
[2019-09-16] MEDS: METHYLPREDNISOLONE INJ 40 MG/1 ML SDV IV SCH (09:43)
--- NOTE | 2019-09-16 12:53 | PDOC PROGRESS REPORT ---
Subjective Progress Note for:: 09/16/19 Reason For Visit: COPD EXACERBATION COPD exacerbation, hypoxia Physical Exam Vital Signs: Temp Pulse Resp BP Pulse Ox 98.3 F 78 16 161/90 H 94 09/16/19 08:24 09/16/19 09:03 09/16/19 09:03 09/16/19 08:24 09/16/19 09:03 Intake & Output 09/15/19 09/16/19 09/17/19 06:59 06:59 06:59 Intake Total 610 1450 Output Total 100 2900 Balance 510 -1450 Weight 59.4 kg 59.1 kg General appearance: PRESENT: no acute distress Respiratory exam: PRESENT: clear to auscultation damaris, other - No wheezes at all. ABSENT: rales, rhonchi, wheezes Cardiovascular exam: PRESENT: RRR. ABSENT: diastolic murmur, rubs, systolic murmur Neurological exam: PRESENT: alert, awake, oriented to person, oriented to place, oriented to time, oriented to situation, CN II-XII grossly intact. ABSENT: mo tor sensory deficit Psychiatric exam: PRESENT: appropriate affect, normal mood, other - Patient states that she is significantly improved. ABSENT: homicidal ideation, suicidal ideation Results Laboratory Results: 09/13/19 04:41 09/13/19 04:41 09/11/19 09/11/19 14:48 15:30 Troponin I Cancelled < 0.012 Impressions: Chest X-Ray 09/14/19 00:00 IMPRESSION: COPD. No failure or consolidation. Assessment and Plan - Diagnosis (1) Emphysema of lung Is this a current diagnosis for this admission?: Yes (2) End stage COPD Is this a current diagnosis for this admission?: Yes (3) Acute exacerbation of chronic obstructive pulmonary disease (COPD) Is this a current diagnosis for this admission?: Yes (4) HTN (hypertension) Is this a current diagnosis for this admission?: Yes (5) Hypoxemia Is this a current diagnosis for this admission?: Yes (6) Leukocytosis Qualifiers: Leukocytosis type: unspecified Qualified Code(s): D72.829 - Elevated white blood cell count, unspecified Is this a current diagnosis for this admission?: Yes (7) Tachycardia Is this a current diagnosis for this admission?: Yes - Plan Summary Summary: 09/13/2019 Patient denies using oxygen at home. Does not have a nebulizer machine at home although she will need one at the time of discharge Patient states she was living independently but is going to live with her son at the time of discharge. Patient states that prior to being admitted she had 5 days of worsening shortness of breath Temperature 97.6 pulse 66 blood pressure was elevated at 182/91 O2 sat was between 92 and 98% on 1 to 3 L of nasal cannula Blood pressures come down to 131/67 with 20 of Apresoline IV. Patient was on no antihypertensive other than Lasix prior to admission. States she was put on this medicine many years ago for peripheral edema. Patient denies ever being told she was hypertensive Admission white count was 18,400 today it is 14.1 Chemistry panel is grossly normal A1c is 5.7. TSH was low at 0.32 Feed him is growing out H. influenzae. Swab in the emergency room was negative for flu a or flu B Patient currently using Solu-Medrol 40 mg IV every 12 hours. Lasix 20 mg p.o. daily Zithromax 500 mg po daily was added today Patient will probably need home oxygen and also a nebulizer machine at the time of discharge repeat chest x-ray 2 views in the morning 09/14/2019 Two-view chest x-ray this morning shows lung talbot to be hyperexpanded but no failure or consolidation no pleural effusion Temperature 97.8 pulse is averaging about 80 with some fluctuations Pressure approximately 150/86 O2 sat 94 to 96% on 1 to 2 L nasal cannula White blood cell count 14,100 Did start the patient on IV Zithromax yesterday, continue the Solu-Medrol as well as Lasix Is very stable maintaining her oxygen saturations COPD exacerbation with bronchitis 09/15/2019 She had a short run of atrial fib yesterday afternoon. New onset. Possibly precipitated by her Solu-Medrol and or her COPD. Dose of 10 mg IV Cardizem resolve the issue. Through the night patient has maintained a heart rate from 58-87, with a blood pressure 146/71 and O2 sat between 94 and 100% on 2 L Patient has no p.o. beta-selina ordered at this time Anticipate discharge home on either Thursday or Thursday. Have decreased her Solu-Medrol to just once a day dosing. I have changed her nebulizers from albuterol to Xopenex Patient seems to have made good progress in the last 24 hours 09/16/2019 Patient is sitting up in bed eating breakfast and speaking in full sentences at the same time. This is a significant improvement from 48 hours ago. Patient is satisfied with her progress. Patient's pulse rate has stabilized at around 78. She has had no further runs of A. fib Blood pressure is stable approximately 150/70 We will continue her daily 1 dose of Solu-Medrol as well as her daily 1 dose of Zithromax And plan to discharge her now on Thursday - Time Time Spent with patient: 25-34 minutes
[2019-09-16] MEDS: TEMAZEPAM 15 MG CAPSULE PO SCH (22:35)
[2019-09-17] MEDS: HEPARIN SOD (PORCINE) 5,000 UNIT/ML 1 ML VIAL SUBCUT SCH ×3 (05:12→21:48)
[2019-09-17] MEDS: DOCUSATE SODIUM 100 MG/10 ML UDC PO SCH ×2 (09:02→17:34)
[2019-09-17] MEDS: AZITHROMYCIN 250 MG TABLET PO SCH (09:07)
[2019-09-17] MEDS: FAMOTIDINE 20 MG TABLET PO SCH ×2 (09:07→21:48)
[2019-09-17] MEDS: FUROSEMIDE 20 MG TABLET PO SCH (09:07)
--- NOTE | 2019-09-17 11:00 | PDOC PROGRESS REPORT ---
Subjective Progress Note for:: 09/17/19 Reason For Visit: COPD EXACERBATION Physical Exam Vital Signs: Temp Pulse Resp BP Pulse Ox 97.1 F 83 16 114/59 L 85 L 09/17/19 07:59 09/17/19 09:32 09/17/19 07:59 09/17/19 07:59 09/17/19 09:32 Intake & Output 09/16/19 09/17/19 09/18/19 06:59 06:59 06:59 Intake Total 1450 1155 Output Total 2900 775 Balance -1450 380 Weight 59.1 kg 59.1 kg General appearance: PRESENT: no acute distress Respiratory exam: PRESENT: decreased breath sounds, other - Wheezes are almost all gone, patient is better concerning shortness of breath with speaking and eating but still has problems with apparent hypoxia Cardiovascular exam: PRESENT: RRR. ABSENT: diastolic murmur, rubs, systolic murmur Neurological exam: PRESENT: alert, awake, oriented to person, oriented to place, oriented to time, oriented to situation, CN II-XII grossly intact. ABSENT: motor sensory deficit Psychiatric exam: PRESENT: appropriate affect, normal mood. ABSENT: homicidal ideation, suicidal ideation Results Laboratory Results: 09/13/19 04:41 09/13/19 04:41 09/11/19 18:35 Blood Blood Culture - Final NO GROWTH IN 5 DAYS 09/11/19 16:48 Blood Blood Culture - Final NO GROWTH IN 5 DAYS 09/11/19 09/11/19 14:48 15:30 Troponin I Cancelled < 0.012 Impressions: Chest X-Ray 09/14/19 00:00 IMPRESSION: COPD. No failure or consolidation. Assessment and Plan - Diagnosis (1) Emphysema of lung Is this a current diagnosis for this admission?: Yes (2) End stage COPD Is this a current diagnosis for this admission?: Yes (3) Acute exacerbation of chronic obstructive pulmonary disease (COPD) Is this a current diagnosis for this admission?: Yes (4) HTN (hypertension) Is this a current diagnosis for this admission?: Yes (5) Hypoxemia Is this a current diagnosis for this admission?: Yes (6) Leukocytosis Qualifiers: Leukocytosis type: unspecified Qualified Code(s): D72.829 - Elevated white blood cell count, unspecified Is this a current diagnosis for this admission?: Yes (7) Tachycardia Is this a current diagnosis for this admission?: Yes - Plan Summary Summary: 09/13/2019 Patient denies using oxygen at home. Does not have a nebulizer machine at home although she will need one at the time of discharge Patient states she was living independently but is going to live with her son at the time of discharge. Patient states that prior to being admitted she had 5 days of worsening shortness of breath Temperature 97.6 pulse 66 blood pressure was elevated at 182/91 O2 sat was between 92 and 98% on 1 to 3 L of nasal cannula Blood pressures come down to 131/67 with 20 of Apresoline IV. Patient was on no antihypertensive other than Lasix prior to admission. States she was put on this medicine many years ago for peripheral edema. Patient denies ever being told she was hypertensive Admission white count was 18,400 today it is 14.1 Chemistry panel is grossly normal A1c is 5.7. TSH was low at 0.32 Feed him is growing out H. influenzae. Swab in the emergency room was negative for flu a or flu B Patient currently using Solu-Medrol 40 mg IV every 12 hours. Lasix 20 mg p.o. daily Zithromax 500 mg po daily was added today Patient will probably need home oxygen and also a nebulizer machine at the time of discharge repeat chest x-ray 2 views in the morning 09/14/2019 Two-view chest x-ray this morning shows lung talbot to be hyperexpanded but no failure or consolidation no pleural effusion Temperature 97.8 pulse is averaging about 80 with some fluctuations Pressure approximately 150/86 O2 sat 94 to 96% on 1 to 2 L nasal cannula White blood cell count 14,100 Did start the patient on IV Zithromax yesterday, continue the Solu-Medrol as well as Lasix Is very stable maintaining her oxygen saturations COPD exacerbation with bronchitis 09/15/2019 She had a short run of atrial fib yesterday afternoon. New onset. Possibly precipitated by her Solu-Medrol and or her COPD. Dose of 10 mg IV Cardizem resolve the issue. Through the night patient has maintained a heart rate from 58-87, with a blood pressure 146/71 and O2 sat between 94 and 100% on 2 L Patient has no p.o. beta-selina ordered at this time Anticipate discharge home on either Thursday or Thursday. Have decreased her So viola-Medrol to just once a day dosing. I have changed her nebulizers from albuterol to Xopenex Patient seems to have made good progress in the last 24 hours 09/16/2019 Patient is sitting up in bed eating breakfast and speaking in full sentences at the same time. This is a significant improvement from 48 hours ago. Patient is satisfied with her progress. Patient's pulse rate has stabilized at around 78. She has had no further runs of A. fib Blood pressure is stable approximately 150/70 We will continue her daily 1 dose of Solu-Medrol as well as her daily 1 dose of Zithromax And plan to discharge her now on Thursday09/17/2019 In my opinion patient has end-stage COPD. With her oxygen off for just 15 minutes she dropped her saturations down to 85% on room air. Patient will need home O2 when she is discharged I have DC'd her Solu-Medrol today and instead given her prednisone 60 mg p.o.. W e will send her home on a Medrol Dosepak possibly tomorrow. Today her temp is 97 9 pulse of 65-80, blood pressure 150/80, O2 sat is 97% on 2 L nasal cannula Labs are supposed to be drawn today and they are pending. Going to put in an order with discharge planning for patient to have home O2 for her end-stage COPD. - Time Time Spent with patient: 25-34 minutes
[2019-09-17 11:27] LABS: HEMATOCRIT 48.2 % (36.0-47.0); HEMOGLOBIN 16.4 g/dL (12.0-15.5); MEAN CORPUSCULAR HEMOGLOBIN 31.4 pg (27.0-33.4); MEAN CORPUSCULAR VOLUME 92 fl (80-97); RED BLOOD COUNT 5.22 10^6/uL (3.72-5.28); RED CELL DISTRIBUTION WIDTH 13.9 % (11.5-14.0)
[2019-09-17 11:46] LABS: ANION GAP 8 (5-19); BLOOD UREA NITROGEN 31 mg/dL (7-20); CALCIUM 9.4 mg/dL (8.4-10.2); CARBON DIOXIDE 39 mmol/L (22-30); CHLORIDE 93 mmol/L (98-107); GLUCOSE 80 mg/dL (75-110); POTASSIUM 3.9 mmol/L (3.6-5.0)
[2019-09-17 11:59] LABS: ABSOLUTE LYMPHOCYTES# (MANUAL) 3.8 10^3/uL (0.5-4.7); ABSOLUTE MONOCYTES # (MANUAL) 0.3 10^3/uL (0.1-1.4); BASOPHILS % (MANUAL) 0 % (0-2); EOSINOPHILS % (MANUAL) 4 % (0-6); LYMPHOCYTES % (MANUAL) 27 % (13-45); MONOCYTES % (MANUAL) 3 % (3-13); RBC MORPHOLOGY COMMENT NORMO-CYTIC/CHROMIC; SEGMENTED NEUTROPHILS % (MAN) 51 % (42-78); TOTAL CELLS COUNTED 100
[2019-09-17 12:00] LABS: PLATELET COUNT 331 10^3/uL (150-450)
[2019-09-17 12:07] LABS: PLATELET COMMENT ADEQUATE
[2019-09-17] MEDS: PREDNISONE 20 MG TABLET PO SCH (17:02)
[2019-09-17] MEDS: TEMAZEPAM 15 MG CAPSULE PO SCH (21:48)
[2019-09-18] MEDS: HEPARIN SOD (PORCINE) 5,000 UNIT/ML 1 ML VIAL SUBCUT SCH ×2 (06:16→13:15)
[2019-09-18] MEDS: PREDNISONE 20 MG TABLET PO SCH (10:33)
[2019-09-18] MEDS: FAMOTIDINE 20 MG TABLET PO SCH (10:33)
[2019-09-18] MEDS: AZITHROMYCIN 250 MG TABLET PO SCH (10:33)
[2019-09-18] MEDS: DOCUSATE SODIUM 100 MG/10 ML UDC PO SCH ×2 (10:33→10:38)
[2019-09-18] MEDS: FUROSEMIDE 20 MG TABLET PO SCH (10:33)
[2019-09-18 12:43] VITALS: BP 127/63
[2019-09-19 14:45] LABS: PATH REVIEW PATHOLOGIST REVIEWED
--- NOTE | 2019-09-27 12:50 | PDOC DISCHARGE SUMMARY ---
Impression - Admit/DC Date/PCP Admission Date/Primary Care Provider: 09/11/19 18:21 USHA SULLIVAN MD Discharge Date: 09/18/19 - Discharge Diagnosis (1) Emphysema of lung Is this a current diagnosis for this admission?: Yes (2) End stage COPD Is this a current diagnosis for this admission?: Yes (3) Acute exacerbation of chronic obstructive pulmonary disease (COPD) Is this a current diagnosis for this admission?: Yes (4) HTN (hypertension) Is this a current diagnosis for this admission?: Yes (5) Hypoxemia Is this a current diagnosis for this admission?: Yes (6) Leukocytosis Is this a current diagnosis for this admission?: Yes (7) Tachycardia Is this a current diagnosis for this admission?: Yes - Assessment Summary: 09/13/2019 Patient denies using oxygen at home. Does not have a nebulizer machine at home although she will need one at the time of discharge Patient states she was living independently but is going to live with her son at the time of discharge. Patient states that prior to being admitted she had 5 days of worsening shortness of breath Temperature 97.6 pulse 66 blood pressure was elevated at 182/91 O2 sat was between 92 and 98% on 1 to 3 L of nasal cannula Blood pressures come down to 131/67 with 20 of Apresoline IV. Patient was on no antihypertensive other than Lasix prior to admission. States she was put on this medicine many years ago for peripheral edema. Patient denies ever being told she was hypertensive Admission white count was 18,400 today it is 14.1 Chemistry panel is grossly normal A1c is 5.7. TSH was low at 0.32 Feed him is growing out H. influenzae. Swab in the emergency room was negative for flu a or flu B Patient currently using Solu-Medrol 40 mg IV every 12 hours. Lasix 20 mg p.o. daily Zithromax 500 mg po daily was added today Patient will probably need home oxygen and also a nebulizer machine at the time of discharge repeat chest x-ray 2 views in the morning 09/14/2019 Two-view chest x-ray this morning shows lung talbot to be hyperexpanded but no failure or consolidation no pleural effusion Temperature 97.8 pulse is averaging about 80 with some fluctuations Pressure approximately 150/86 O2 sat 94 to 96% on 1 to 2 L nasal cannula White blood cell count 14,100 Did start the patient on IV Zithromax yesterday, continue the Solu-Medrol as well as Lasix Is very stable maintaining her oxygen saturations COPD exacerbation with bronchitis 09/15/2019 She had a short run of atrial fib yesterday afternoon. New onset. Possibly precipitated by her Solu-Medrol and or her COPD. Dose of 10 mg IV Cardizem resolve the issue. Through the night patient has maintained a heart rate from 58-87, with a blood pressure 146/71 and O2 sat between 94 and 100% on 2 L Patient has no p.o. beta-selina ordered at this time Anticipate discharge home on either Thursday or Thursday. Have decreased her Solu-Medrol to just once a day dosing. I have changed her nebulizers from albuterol to Xopenex Patient seems to have made good progress in the last 24 hours 09/16/2019 Patient is sitting up in bed eating breakfast and speaking in full sentences at the same time. This is a significant improvement from 48 hours ago. Patient is satisfied with her progress. Patient's pulse rate has stabilized at around 78. She has had no further runs of A. fib Blood pressure is stable approximately 150/70 We will continue her daily 1 dose of Solu-Medrol as well as her daily 1 dose of Zithromax And plan to discharge her now on Thursday09/17/2019 In my opinion patient has end-stage COPD. With her oxygen off for just 15 minutes she dropped her saturations down to 85% on room air. Patient will need home O2 when she is discharged I have DC'd her Solu-Medrol today and instead given her prednisone 60 mg p.o.. We will send her home on a Medrol Dosepak possibly tomorrow. Today her temp is 97 9 pulse of 65-80, blood pressure 150/80, O2 sat is 97% on 2 L nasal cannula Labs are supposed to be drawn today and they are pending. Going to put in an order with discharge planning for patient to have home O2 for her end-stage COPD. 09/18/2019 Being discharged home today will have home oxygen to use I have written for Restoril to be used at bedtime Xopenex nebulizers to use every 4 hours as needed She is to follow-up with her primary care provider in the next 7 to 10 days Final diagnosis is end-stage COPD with oxygen dependency - Additional Information Resuscitation Status: Full Code Discharge Diet: As Tolerated Discharge Activity: Balance Activity w/Rest Referrals: USHA SULLIVAN MD [Primary Care Provider] - Follow up as needed ( ) Prescriptions: Temazepam [Restoril 15 mg Capsule] 15 mg PO HSP PRN 30 Days #30 capsule PRN Reason: Temazepam [Restoril 15 mg Capsule] 15 mg PO HSP PRN 30 Days #30 cap PRN Reason: Levalbuterol HCl [Xopenex Neb 1.25 mg/3 ml Ampul] 1.25 mg NEB RTQ4HP PRN 30 Days #60 vial.neb PRN Reason: Home Medications: Albuterol Sulfate [Ventolin Hfa 8 gm Mdi (1 Mdi/ER Disp)] 2 puff IH Q4HP PRN 09/12/19 Furosemide [Lasix 20 mg Tablet] 20 mg PO DAILY 09/12/19 Naproxen Sodium 220 mg PO DAILYP PRN 09/12/19 Levalbuterol HCl [Xopenex Neb 1.25 mg/3 ml Ampul] 1.25 mg NEB RTQ4HP PRN 30 Days #60 vial.neb 09/18/19 Temazepam [Restoril 15 mg Capsule] 15 mg PO HSP PRN 30 Days #30 cap 09/18/19 Temazepam [Restoril 15 mg Capsule] 15 mg PO HSP PRN 30 Days #30 capsule 09/18/19 History of Present Illiness History of Present Illness: MROGAN HINKLE is a 79 year old female Physical Exam Vital Signs: Temp Pulse Resp BP Pulse Ox 98.0 F 80 16 127/63 H 97 09/18/19 13:22 09/18/19 13:22 09/18/19 13:22 09/18/19 13:22 09/18/19 13:22 Results Laboratory Results: WBC 9.0 10^3/uL (4.0-10.5) 09/17/19 10:50 RBC 5.22 10^6/uL (3.72-5.28) 09/17/19 10:50 Hgb 16.4 g/dL (12.0-15.5) H 09/17/19 10:50 Hct 48.2 % (36.0-47.0) H 09/17/19 10:50 MCV 92 fl (80-97) 09/17/19 10:50 MCH 31.4 pg (27.0-33.4) 09/17/19 10:50 MCHC 34.0 g/dL (32.0-36.0) 09/17/19 10:50 RDW 13.9 % (11.5-14.0) 09/17/19 10:50 Plt Count 331 10^3/uL (150-450) 09/17/19 10:50 Lymph % (Auto) Not Reportable 09/17/19 10:50 Miller % (Auto) Not Reportable 09/17/19 10:50 Eos % (Auto) Not Reportable 09/17/19 10:50 Baso % (Auto) Not Reportable 09/17/19 10:50 Absolute Neuts (auto) Not Reportable 09/17/19 10:50 Absolute Lymphs (auto) Not Reportable 09/17/19 10:50 Absolute Monos (auto) Not Reportable 09/17/19 10:50 Absolute Eos (auto) Not Reportable 09/17/19 10:50 Absolute Basos (auto) Not Reportable 09/17/19 10:50 Total Counted 100 09/17/19 10:50 Seg Neutrophils % Not Reportable 09/17/19 10:50 Seg Neuts % (Manual) 51 % (42-78) 09/17/19 10:50 Lymphocytes % (Manual) 27 % (13-45) 09/17/19 10:50 Atypical Lymphs % 15 % (0) 09/17/19 10:50 Monocytes % (Manual) 3 % (3-13) 09/17/19 10:50 Eosinophils % (Manual) 4 % (0-6) 09/17/19 10:50 Basophils % (Manual) 0 % (0-2) 09/17/19 10:50 Abs Neuts (Manual) 4.6 10^3/uL (1.7-8.2) 09/17/19 10:50 Abs Lymphs (Manual) 3.8 10^3/uL (0.5-4.7) 09/17/19 10:50 Abs Monocytes (Manual) 0.3 10^3/uL (0.1-1.4) 09/17/19 10:50 Absolute Eos (Manual) 0.4 10^3/uL (0.0-0.6) 09/17/19 10:50 Abs Basophils (Manual) 0.0 10^3/uL (0.0-0.2) 09/17/19 10:50 Toxic Granulation 1+ 09/13/19 04:41 Toxic Vacuolation PRESENT 09/13/19 04:41 Platelet Comment ADEQUATE 09/17/19 10:50 Poikilocytosis SLIGHT 09/13/19 04:41 Anisocytosis SLIGHT 09/13/19 04:41 Ovalocytes SLIGHT 09/13/19 04:41 RBC Morph Comment NORMO-CYTIC/CHROMIC 09/17/19 10:50 Sodium 140.2 mmol/L (137-145) 09/17/19 10:50 Potassium 3.9 mmol/L (3.6-5.0) 09/17/19 10:50 Chloride 93 mmol/L (98-107) L 09/17/19 10:50 Carbon Dioxide 39 mmol/L (22-30) H 09/17/19 10:50 Anion Gap 8 (5-19) 09/17/19 10:50 BUN 31 mg/dL (7-20) H 09/17/19 10:50 Creatinine 0.75 mg/dL (0.52-1.25) 09/17/19 10:50 Est GFR ( Amer) > 60 (>60) 09/17/19 10:50 Est GFR (Non-Af Amer) Cancelled 09/11/19 14:48 Est GFR (MDRD) Non-Af > 60 (>60) 09/17/19 10:50 Glucose 80 mg/dL (75-110) 09/17/19 10:50 Hemoglobin A1c % 5.7 % (4.7-6.0) 09/12/19 04:47 Calcium 9.4 mg/dL (8.4-10.2) 09/17/19 10:50 Magnesium 2.7 mg/dL (1.6-2.3) H 09/13/19 04:41 Total Bilirubin 0.4 mg/dL (0.2-1.3) 09/13/19 04:41 Direct Bilirubin 0.4 mg/dL (0.0-0.4) 09/13/19 04:41 Neonat Total Bilirubin Not Reportable 09/13/19 04:41 Neonat Direct Bilirubin Not Reportable 09/13/19 04:41 Neonat Indirect Bili Not Reportable 09/13/19 04:41 AST 24 U/L (14-36) 09/13/19 04:41 ALT 19 U/L (<35) 09/13/19 04:41 Alkaline Phosphatase 131 U/L (38-126) H 09/13/19 04:41 Troponin I < 0.012 ng/mL 09/11/19 15:30 Total Protein 7.3 g/dL (6.3-8.2) 09/13/19 04:41 Albumin 4.0 g/dL (3.5-5.0) 09/13/19 04:41 Triglycerides 84 mg/dL (<150) 09/12/19 04:47 Cholesterol 161.39 mg/dL (0-200) 09/12/19 04:47 LDL Cholesterol Direct 87 mg/dL (<100) 09/12/19 04:47 VLDL Cholesterol 17.0 mg/dL (10-31) 09/12/19 04:47 HDL Cholesterol 59 mg/dL (>40) 09/12/19 04:47 EGFR Cancelled 09/11/19 14:48 TSH 0.32 uIU/mL (0.47-4.68) L 09/12/19 04:47 Influenza A (Rapid) NEGATIVE (NEGATIVE) 09/11/19 16:48 Influenza B (Rapid) NEGATIVE (NEGATIVE) 09/11/19 16:48 Slides for Path Review PATHOLOGIST REVIEWED 09/17/19 10:50 09/11/19 09/11/19 14:48 15:30 Troponin I Cancelled < 0.012 Impressions: Chest X-Ray 09/11/19 15:30 IMPRESSION: Emphysema. Otherwise, no acute radiographic finding in the chest. Chest X-Ray 09/14/19 00:00 IMPRESSION: COPD. No failure or consolidation. Stroke Is this a Stroke Patient?: No Acute Heart Failure - Is this a Heart Failure Patient?: No
== END 2019-09-18 14:18 | disposition home or self-care (01) | DRG 190 ==
LOC: ER 13:52 → EH 18:21 → 3W 09-12 00:19
PROVIDERS: ADMIT Internal Medicine; ATTEND Internal Medicine
PROC: 3E0234Z Introduction of Serum, Toxoid and Vaccine into Muscle, Percutaneous Approach (ICD-10-PCS; principal; 2019-09-18)
DX: J43.9 Emphysema, unspecified (principal); J96.21 Acute and chronic respiratory failure with hypoxia; I10 Essential (primary) hypertension; I48.0 Paroxysmal atrial fibrillation; R00.0 Tachycardia, unspecified; D72.829 Elevated white blood cell count, unspecified; F17.210 Nicotine dependence, cigarettes, uncomplicated; Z23 Encounter for immunization
CPT/HCPCS: 36415; 71045; 71046; 80048; 80053; 80061; 83036; 83735; 84443; 84484; 85025; 85027; 87040; 87070; 87077; 87205; 87804; 90686; 93005; 93010; 94640; 94667; 94668; 96374; 99291; J0360; J0696; J1644; J2920; J2930; J3490; J7030; J7512; J7620

== ENCOUNTER 2020-01-07 14:15 | Emergency (ER) | payer MEDICARE, MEDICAID ==
--- NOTE | 2020-01-07 15:07 | ER Document Report ---
ED Medical Screen (RME) - General Chief Complaint: Leg Swelling Stated Complaint: LEFT LEG SWELLING Time Seen by Provider: 01/07/20 14:51 Primary Care Provider: USHA SULLIVAN MD [Primary Care Provider] - Follow up as needed Mode of Arrival: Ambulatory Information source: Patient Notes: 79-year-old female presented to ED for complaint of pain redness and swelling to her right leg for about 4 weeks. She was sent to the emergency room by family urgent care after they got a negative x-ray of the foot and ankle. She states that the urgent care provider told her that she needed a venous Doppler. She is alert oriented respirations regular nonlabored speaking in full sentences walks with even steady gait. I have greeted and performed a rapid initial assessment of this patient. A comprehensive ED assessment and evaluation of the patient, analysis of test results and completion of medical decision making process will be conducted by an additional ED providers. TRAVEL OUTSIDE OF THE [place] IN LAST 30 DAYS: No - Related Data Allergies/Adverse Reactions: No Known Allergies Allergy (Verified 01/07/20 14:49) Past Medical History - Social History Chew tobacco use (# tins/day): No Frequency of alcohol use: Rare Drug Abuse: None - Past Medical History Cardiac Medical History: Reports: Hx Hypertension Pulmonary Medical History: Reports: Hx COPD Past Surgical History: Reports: Hx Adenoidectomy, Hx Tonsillectomy, Hx Tubal Ligation, Other - Partial hysterectomy Physical Exam - Vital signs Vitals: Temp Pulse Resp BP Pulse Ox 97.8 F 75 20 154/82 H 100 01/07/20 14:20 01/07/20 14:20 01/07/20 14:20 01/07/20 14:20 01/07/20 14:20 Course - Vital Signs Vital signs: Temp Pulse Resp BP Pulse Ox 97.8 F 75 20 154/82 H 100 01/07/20 14:50 01/07/20 14:20 01/07/20 14:20 01/07/20 14:20 01/07/20 14:20 Doctor's Discharge - Discharge Referrals: USHA SULLIVAN MD [Primary Care Provider] - Follow up as needed
[2020-01-07 15:25] LABS: ABSOLUTE BASOPHILS # (AUTO) 0.1 10^3/uL (0.0-0.2); ABSOLUTE EOSINOPHILS # (AUTO) 0.3 10^3/uL (0.0-0.6); ABSOLUTE LYMPHOCYTES (AUTO) 1.9 10^3/uL (0.5-4.7); ABSOLUTE MONOCYTES (AUTO) 0.5 10^3/uL (0.1-1.4); ABSOLUTE NEUT (AUTO) 3.2 10^3/uL (1.7-8.2); BASOPHILS % (AUTO) 1.4 % (0-2); EOSINOPHILS % (AUTO) 5.8 % (0-6); HEMATOCRIT 42.7 % (36.0-47.0); HEMOGLOBIN 14.5 g/dL (12.0-15.5); LYMPHOCYTES % (AUTO) 31.8 % (13-45); MEAN CORPUSCULAR HEMOGLOBIN 31.2 pg (27.0-33.4); MEAN CORPUSCULAR HGB CONC 33.9 g/dL (32.0-36.0); MEAN CORPUSCULAR VOLUME 92 fl (80-97); MONOCYTES % (AUTO) 7.9 % (3-13); PLATELET COUNT 280 10^3/uL (150-450); RED BLOOD COUNT 4.64 10^6/uL (3.72-5.28); RED CELL DISTRIBUTION WIDTH 14.2 % (11.5-14.0); SEGMENTED NEUTROPHILS % (AUTO) 53.1 % (42-78); TOTAL CELLS COUNTED % (AUTO) 100 %
[2020-01-07 15:49] LABS: ALBUMIN 4.5 g/dL (3.5-5.0); ALKALINE PHOSPHATASE 109 U/L (38-126); ANION GAP 5 (5-19); ASPARTATE AMINO TRANSFERASE 30 U/L (14-36); BILIRUBIN,TOTAL 0.7 mg/dL (0.2-1.3); BLOOD UREA NITROGEN 25 mg/dL (7-20); CALCIUM 9.6 mg/dL (8.4-10.2); CARBON DIOXIDE 31 mmol/L (22-30); CHLORIDE 101 mmol/L (98-107); GLUCOSE 97 mg/dL (75-110); POTASSIUM 5.1 mmol/L (3.6-5.0); TOTAL PROTEIN 7.3 g/dL (6.3-8.2)
--- NOTE | 2020-01-07 15:53 | ER Document Report ---
ED Extremity Problem, Lower - General Chief Complaint: Leg Swelling Stated Complaint: LEFT LEG SWELLING Time Seen by Provider: 01/07/20 14:51 Primary Care Provider: USHA SULLIVAN MD [Primary Care Provider] - Follow up as needed Mode of Arrival: Ambulatory Information source: Patient Notes: 79-year-old female with a past medical history significant for COPD presents to the emergency room complaining of right ankle and foot pain and swelling for the past 4 weeks. States it has been intermittent and has gotten worse over the past few weeks. States she did have a trip and fall 4 weeks ago while trying to fix her blinds twisting her right ankle. Went to urgent care today had negative x-rays and was referred to the emergency room for rule out DVT. Minimal pain, has not been taking anything for it. Just concerned about the swelling to her foot and ankle. No history of DVTs, no recent travel, no changes in her lifestyle. Denies sedentary lifestyle. TRAVEL OUTSIDE OF THE [place] IN LAST 30 DAYS: No - Related Data Allergies/Adverse Reactions: No Known Allergies Allergy (Verified 01/07/20 14:49) Past Medical History - General Information source: Patient - Social History Smoking Status: Former Smoker Chew tobacco use (# tins/day): No Frequency of alcohol use: Rare Drug Abuse: None Family History: Reviewed & Not Pertinent Patient has homicidal ideation: No - Past Medical History Cardiac Medical History: Reports: Hx Hypertension Pulmonary Medical History: Reports: Hx COPD Past Surgical History: Reports: Hx Adenoidectomy, Hx Appendectomy, Hx Hysterectomy - partial, Hx Tonsillectomy, Hx Tubal Ligation, Other - Partial hysterectomy Review of Systems - Review of Systems Constitutional: No symptoms reported Cardiovascular: Edema Respiratory: No symptoms reported Musculoskeletal: Muscle pain, Ankle swelling Neurological/Psychological: No symptoms reported -: Yes All other systems reviewed and negative Physical Exam - Vital signs Vitals: Temp Pulse Resp BP Pulse Ox 97.8 F 75 20 154/82 H 100 01/07/20 14:20 01/07/20 14:20 01/07/20 14:20 01/07/20 14:20 01/07/20 14:20 - General General appearance: Appears well, Alert In distress: Mild - Respiratory Respiratory status: No respiratory distress Chest status: Nontender Breath sounds: Normal Chest palpation: Normal - Cardiovascular Rhythm: Regular Heart sounds: Normal auscultation Murmur: No - Extremities Calf: Nontender, Other - Right lower ankle and foot with mild swelling, no erythema, not warm or tender to palpation.. No: Unable to bear weight - Neurological Neuro grossly intact: Yes Cognition: Normal Orientation: AAOx4 Sensory: Normal Notes: Positive right pedal pulse. Capillary refill less than 3 seconds. Course - Re-evaluation Re-evalutation: 01/07/20 16:43 Patient's resting comfortably no acute distress at this time. Reviewed lab results with patient. Aware of need for additional testing secondary to elevated d-dimer. 01/07/20 18:20 Patient is resting comfortably have reviewed all lab and CT and ultrasound reports with patient. Aware of new blood clots. Patient was slightly elevated potassium and slightly elevated BUN has received 500 cc of lactated Ringer's. Will repeat BMP if labs are stable patient be discharged home. 01/07/20 20:44 Patient is resting comfortably reviewed repeat labs with patient. She was counseled to continue to rest and elevate her right leg. Outpatient follow-up with her primary care physician if not improving. Increase her fluids. Patient was given strict return to the emergency room guidelines. She is to return for any new or worsening symptoms. All questions were answered. Patient verbalized understanding and agrees with plan of care. - Vital Signs Vital signs: Temp Pulse Resp BP Pulse Ox 97.8 F 75 20 154/82 H 100 01/07/20 14:50 01/07/20 14:20 01/07/20 14:20 01/07/20 14:20 01/07/20 14:20 - Laboratory Result Diagrams: 01/07/20 15:12 01/07/20 20:02 Laboratory results interpreted by me: 01/07/20 01/07/20 01/07/20 15:12 15:12 15:45 RDW 14.2 H APTT 36.9 H D-Dimer 0.80 H Potassium 5.1 H Carbon Dioxide 31 H BUN 25 H 01/07/20 20:02 RDW APTT D-Dimer Potassium Carbon Dioxide BUN 22 H - Diagnostic Test Radiology reviewed: Reports reviewed Discharge - Discharge Clinical Impression: Lower leg edema, D-dimer, elevated Condition: Stable Disposition: HOME, SELF-CARE Instructions: Edema, Peripheral ([facility]) Additional Instructions: Patient is resting comfortably she is pain-free. All test results were reviewed with the patient. She was counseled to elevate her foot. Outpatient follow-up with her primary care physician. She is to return for any new or worsening symptoms. Referrals: USHA SULLIVAN MD [Primary Care Provider] - Follow up as needed
[2020-01-07 16:19] LABS: INTERNATIONAL RATION (INR) 1.01; PROTHROMBIN TIME 13.3 SEC (11.4-15.4)
[2020-01-07 16:20] LABS: PARTIAL THROMBOPLASTIN TIME 36.9 SEC (23.5-35.8)
[2020-01-07] MEDS ORDERED: RINGERS SOLUTION,LACTATED 1,000 ML IV ONE (16:28)
--- NOTE | 2020-01-07 17:01 | RADIOLOGY REPORT (SQ) ---
EXAM DESCRIPTION: VENOUS UNILATERAL LOWER IMAGES COMPLETED DATE/TIME: 01/07/2020 3:39 pm REASON FOR STUDY: Right leg pain redness and swelling negative x-ray COMPARISON: None. TECHNIQUE: Dynamic and static portillo scale and color images acquired of the right leg venous system. S elected spectral images acquired with additional compression and augmentation maneuvers. The contrala teral common femoral vein and saphenofemoral junction were also imaged. Images stored on PACS. LIMITATIONS: None. FINDINGS: COMMON FEMORAL: Normal phasicity, compression and augmentation. No visualized echogenic ma terial on portillo scale. No defects on color images. FEMORAL: Normal compression and augmentation. No visualized echogenic material on portillo scale. No defe cts on color images. POPLITEAL: Normal compression, augmentation. No visualized echogenic material on portillo scale. No defec ts on color images. CALF VESSELS: Normal compression, augmentation. No visualized echogenic material on portillo scale. No de fects on color images. GSV and SSV: Normal compression, augmentation. No visualized echogenic material on portillo scale. No def ects on color images. ANY DEEP VENOUS INSUFFICIENCY: Not evaluated. ANY EVIDENCE OF POPLITEAL CYST: No. OTHER: No other significant finding. CONTRALATERAL COMMON FEMORAL VEIN AND SAPHENOFEMORAL JUNCTION: Not performed. IMPRESSION: No evidence of DVT or SVT in the right lower extremity. TECHNICAL DOCUMENTATION: JOB ID: [id number] 2010 [employer]- All Rights Reserved Reading location - IP/workstation name: [email or web address]
--- NOTE | 2020-01-07 18:14 | RADIOLOGY REPORT (SQ) ---
EXAM DESCRIPTION: CTA CHEST IMAGES COMPLETED DATE/TIME: 01/07/2020 4:48 pm REASON FOR STUDY: elevated d dimer COMPARISON: None. TECHNIQUE: CT scan of the chest performed using helical scanning technique with dynamic intravenous contrast injection. Images reviewed with lung, soft tissue and bone windows. Reconstructed coronal and sagittal MPR images reviewed. Additional 3 dimensional post-processing performed to develop Maximal Intensity Projection images (PR P). All images stored on PACS. All CT scanners at this facility use dose modulation, iterative reconstruction, and/or weight based d osing when appropriate to reduce radiation dose to as low as reasonably achievable (ALARA). [facility]: Dose Right [facility]: CareDose [facility]: Dose Right [facility]: Teradose 4D [facility]: Viroblock CONTRAST TYPE AND DOSE: contrast/concentration: Isovue 350.00 mg/ml; Total Contrast Delivered: 52.0 ml; Total Saline Delivered: 78.8 ml Contrast bolus optimized for the pulmonary arteries. Not diagnostic for the aorta. RENAL FUNCTION: GFR > 60. RADIATION DOSE: CT Rad equipment meets quality standard of care and radiation dose reduction techniq ues were employed. CTDIvol: 3.3 - 14.3 mGy. DLP: 517 mGy-cm. . LIMITATIONS: None. FINDINGS: LUNGS AND PLEURA: Trachea has normal caliber and appearance. Small amount of retained sec retions in the upper trachea. No bronchial wall thickening or bronchiectasis. No focal consolidatio n or pleural effusion. Background mild pulmonary emphysema. There is atelectasis in the right middl e lobe. No pleural effusion or pneumothorax. AORTA AND GREAT VESSELS: No aneurysm. Contrast bolus not optimized for the aorta. HEART: No pericardial effusion. No significant coronary artery calcifications. PULMONARY ARTERIES: No emboli visualized in the main pulmonary arteries or the segmental branches. HILAR AND MEDIASTINAL STRUCTURES: No identified masses or abnormal nodes. HARDWARE: None in the chest. UPPER ABDOMEN: Small hepatic cyst in the left hepatic lobe. Bilateral renal cortical cysts. THYROID AND OTHER SOFT TISSUES: No masses. No adenopathy. BONES: No acute or significant finding. 3D MIPS: Confirm above findings. OTHER: No other significant finding. IMPRESSION: 1. No pulmonary embolism. 2. Atelectasis in the right middle lobe. No focal consolidation. 3. Background mild pulmonary emphysema. COMMENT: Quality ID # [id number]: Final reports with documentation of one or more dose reduction techniques (e.g., Automated exposure control, adjustment of the mA and/or kV according to patient size, use of iterative reconstruction technique) TECHNICAL DOCUMENTATION: JOB ID: [id number] 2010 [employer]- All Rights Reserved Reading location - IP/workstation name: [email or web address]
[2020-01-07 20:30] LABS: ANION GAP 6 (5-19); BLOOD UREA NITROGEN 22 mg/dL (7-20); CALCIUM 9.5 mg/dL (8.4-10.2); CARBON DIOXIDE 29 mmol/L (22-30); CHLORIDE 102 mmol/L (98-107); GLUCOSE 106 mg/dL (75-110)
[2020-01-07 20:37] LABS: POTASSIUM 3.9 mmol/L (3.6-5.0)
[2020-01-07 21:05] VITALS: BP 146/77
== END 2020-01-07 20:58 | disposition home or self-care (01) ==
LOC: ER 14:15
DX: R60.0 Localized edema (principal); M25.571 Pain in right ankle and joints of right foot; M79.671 Pain in right foot; X50.1XXA Overexertion from prolonged static or awkward postures, initial encounter; Z87.891 Personal history of nicotine dependence; J44.9 Chronic obstructive pulmonary disease, unspecified; I10 Essential (primary) hypertension; R79.1 Abnormal coagulation profile
CPT/HCPCS: 99284; 96360; 36415; 85025; 85610; 85730; 80053; 85379; 93971; 71275; J7120

== ENCOUNTER 2020-08-01 10:41 | Day surgery (SDC) | payer MEDICARE, MEDICAID ==
[~2020-08-01 10:41] MED LIST: CHONDR SU A NA/HYALUR INTRAOC KIT (SURGICARE) ONE; EPINEPHRINE INJ/PF 1 MG/1 ML AMPULE ONE; KETOROLAC TROMETHAMINE 0.45% 4 DROP/0.4 ML DROPERETTE OD PRN; LIDOCAINE 1%/PHENYLEPHRINE 1.5% 1 ML VIAL ONE
[2020-08-01] MEDS ORDERED: ONDANSETRON HCL INJ/PF 4 MG/2 ML SDV ONE (10:43)
[2020-08-01] MEDS ORDERED: MIDAZOLAM 2 MG/2 ML INJ ONE (10:43)
[2020-08-01] MEDS ORDERED: FENTANYL CITRATE INJ/PF 100 MCG/2 ML AMPUL ONE (10:44)
[2020-08-01] MEDS: CYCLOPENTOLATE 0.2%/PHENYLEPHRINE 1% OPH SOLN 2 ML OD PRN ×3 (11:04→11:24)
[2020-08-01] MEDS: TROPICAMIDE 1% OPH SOLN 15 ML OD PRN ×3 (11:04→11:24)
[2020-08-01] MEDS: BESIFLOXACIN HCL 0.6% OPH SUSP 5 ML BOTTLE OD PRN ×4 (11:04→11:59)
[2020-08-01] MEDS: TETRACAINE HCL 0.5% OPH SOLN 4 ML OD PRN ×3 (11:05→11:41)
[2020-08-01] MEDS: PREDNISOLONE ACETATE 1% OPH SUSP 5 ML OD PRN ×2 (11:52→11:59)
[2020-08-01] MEDS: DORZOLAMIDE HCL 2%/TIMOLOL MALEAT 0.5% OPH SOLN 10 ML OD PRN ×2 (11:52→11:59)
--- NOTE | 2020-08-01 13:32 | Operative Report ---
Operative Report-[facility] Operative Report: DATE OF SURGERY: August 01, 2020 PREOPERATIVE DIAGNOSIS: NUCLEAR CATARACT, RIGHT EYE. POSTOPERATIVE DIAGNOSIS: NUCLEAR CATARACT, RIGHT EYE. PROCEDURE PERFORMED: PHACOEMULSIFICATION WITH POSTERIOR CHAMBER INTRAOCULAR LENS IMPLANT, RIGHT EYE. SURGEON: Aravind Mistry DO MEDICATIONS AND ANESTHESIA: Versed: IV Versed Tetracaine drops: 1 to 2 drops given as needed COMPLICATION: None INDICATIONS FOR SURGERY: Medical necessity: Best corrected visual acuity worse than 20/40 secondary to cataracts with impairment of ability to carry out needs or desired activities, blurred vision, visual distortion, reduced contrast sensitivity and/or glare with association functional impairment and supporting documentation/testing, and cataracts causing symptomatic impairment of visual functions not corrected with tolerable changes in glasses or contact lenses interfering with activities of daily life. PROCEDURE: Consent: The risks, benefits and alternatives of this procedures was discussed with the patient. The patient read and signed the consent forms, was identified and was seated in the exam chair. IOL: MX 60 E 24.0 IOL Diopters: Phacoemulsification with posterior chamber intraocular lens implant: The face was prepped with 5% povidone iodine solution, and a few drops of 5% povidone iodine solution was instilled into the inferior fornix. A non-fenestrated drape was placed over the eye and the lids were parted with the speculum. A paracentesis was made with a 15 degree blade, and 1% lidocaine MPF followed by viscoelastic was injected into the anterior chamber. A 2.4 mm metal micro- keratome was used to create a temporal clear corneal incision. A circular anterior capsulorrhexis was created, followed by hydro-dissection and hydro- delineation. The phacoemulsification hand piece was inserted and the nucleus was removed with the Phaco chop technique. The irrigation-aspiration hand piece was used to remove the residual cortex, and vacuum the posterior capsule. The capsular bag was inflated and viscoelastic and the above-mentioned IOL was injected into the eye with care to insert both leaning and trailing haptics in the capsular bag. The irrigation/aspiration hand piece was reinserted to remove residual viscoelastic from the capsular bag and anterior chamber. The corneal incision was hydrated, and anterior chamber was inflated with sterile BSS via the paracentesis site, and found to be watertight. Postop medication: 1 drop of prednisolone into operative by followed by 1 drop of Cosopt into operative eye followed by 1 drop of Besivance intraoperative by other:
== END 2020-08-01 12:31 ==
LOC: SC 10:41
PROVIDERS: ATTEND Ophthalmology
DX: H25.11 Age-related nuclear cataract, right eye (principal); K21.9 Gastro-esophageal reflux disease without esophagitis; J45.909 Unspecified asthma, uncomplicated; Z79.51 Long term (current) use of inhaled steroids
CPT/HCPCS: 66984; V2632; J2250; J3490 ×2; A9270; J0171; J3010; J2405

== ENCOUNTER 2020-08-15 10:42 | Day surgery (SDC) | payer MEDICARE, MEDICAID ==
[~2020-08-15 10:42] MED LIST changes: +DORZOLAMIDE HCL 2%/TIMOLOL MALEAT 0.5% OPH SOLN 10 ML OS PRN; -KETOROLAC TROMETHAMINE 0.45% 4 DROP/0.4 ML DROPERETTE OD PRN; +KETOROLAC TROMETHAMINE 0.45% 4 DROP/0.4 ML DROPERETTE OS PRN; +MIDAZOLAM 2 MG/2 ML INJ ONE; +PREDNISOLONE ACETATE 1% OPH SUSP 5 ML OS PRN
[2020-08-15] MEDS: TETRACAINE HCL 0.5% OPH SOLN 4 ML OS PRN ×3 (11:01→11:31)
[2020-08-15] MEDS: CYCLOPENTOLATE 0.2%/PHENYLEPHRINE 1% OPH SOLN 2 ML OS PRN ×3 (11:01→11:22)
[2020-08-15] MEDS: BESIFLOXACIN HCL 0.6% OPH SUSP 5 ML BOTTLE OS PRN ×3 (11:01→11:50)
[2020-08-15] MEDS: TROPICAMIDE 1% OPH SOLN 15 ML OS PRN ×3 (11:01→11:22)
--- NOTE | 2020-08-15 12:46 | Operative Report ---
Operative Report-[facility] Operative Report: DATE OF SURGERY: August 15, 2020 PREOPERATIVE DIAGNOSIS: NUCLEAR CATARACT, LEFT EYE. POSTOPERATIVE DIAGNOSIS: NUCLEAR CATARACT, LEFT EYE. PROCEDURE PERFORMED: PHACOEMULSIFICATION WITH POSTERIOR CHAMBER INTRAOCULAR LENS IMPLANT, LEFT EYE. SURGEON: Aravind Mistry DO MEDICATIONS AND ANESTHESIA: Versed: IV Versed Tetracaine drops: 1 to 2 drops given as needed COMPLICATION: None INDICATIONS FOR SURGERY: Medical necessity: Best corrected visual acuity worse than 20/40 secondary to cataracts with impairment of ability to carry out needs or desired activities, blurred vision, visual distortion, reduced contrast sensitivity and/or glare with association functional impairment and supporting documentation/testing, and cataracts causing symptomatic impairment of visual functions not corrected with tolerable changes in glasses or contact lenses interfering with activities of daily life. PROCEDURE: Consent: The risks, benefits and alternatives of this procedures was discussed with the patient. The patient read and signed the consent forms, was identified and was seated in the exam chair. IOL: MX 60 E 24.0 IOL Diopters: Phacoemulsification with posterior chamber intraocular lens implant: The face was prepped with 5% povidone iodine solution, and a few drops of 5% povidone iodine solution was instilled into the inferior fornix. A non-fenestrated drape was placed over the eye and the lids were parted with the speculum. A paracentesis was made with a 15 degree blade, and 1% lidocaine MPF followed by viscoelastic was injected into the anterior chamber. A 2.4 mm metal micro- keratome was used to create a temporal clear corneal incision. A circular anterior capsulorrhexis was created, followed by hydro-dissection and hydro- delineation. The phacoemulsification hand piece was inserted and the nucleus was removed with the Phaco chop technique. The irrigation-aspiration hand piece was used to remove the residual cortex, and vacuum the posterior capsule. The capsular bag was inflated and viscoelastic and the above-mentioned IOL was injected into the eye with care to insert both leaning and trailing haptics in the capsular bag. The irrigation/aspiration hand piece was reinserted to remove residual viscoelastic from the capsular bag and anterior chamber. The corneal incision was hydrated, and anterior chamber was inflated with sterile BSS via the paracentesis site, and found to be watertight. Postop medication:1 drop of prednisolone into operative by followed by 1 drop of Cosopt into operative eye followed by 1 drop of Besivance intraoperative by Other:
== END 2020-08-15 12:26 | disposition home or self-care (01) ==
LOC: SC 10:42
PROVIDERS: ATTEND Ophthalmology
DX: H25.12 Age-related nuclear cataract, left eye (principal); Z98.41 Cataract extraction status, right eye; J44.9 Chronic obstructive pulmonary disease, unspecified; Z79.51 Long term (current) use of inhaled steroids; Z87.891 Personal history of nicotine dependence
CPT/HCPCS: 66984; V2632; J2250; J3490 ×2; A9270; J0171